=== PATIENT | male | born 1935 | race African-American/Black ===

== ENCOUNTER 2017-04-26 11:08 | Emergency (ER) | payer OTHER ==
--- NOTE | 2017-04-26 11:39 | PDOC ---
History of Present Illness - General History Source: Patient Exam Limitations: No Limitations - History of Present Illness Initial Comments: 04/26/17 13:02 The patient is a 81 year old male with no significant past medical history, who presents to the ED accompanied with son and . Patient denies any complaints but his son states he has been having back pain and dark urine. Denies dysuria, frequency, hematuria, urgency. Patients son states he has not been drinking enough fluids and doesn't eat enough food. He states he has lost significant weight recently and is underweight. Denies chest pain, SOB, fever, chills, nausea, vomiting, diarrhea, constipation. Patient is former smoker (quit 5 years ago). Denies drug usage or drinking alcohol. Patient lives alone at home. Son comes and takes care of him. <Ezequiel Bradley - Last Filed: 04/26/17 18:09> <Taina Monzon - Last Filed: 04/26/17 18:41> - General Stated Complaint: FAILURE TO THRIVE Time Seen by Provider: 04/26/17 11:38 NIH Stroke Scale - Initial Evaluation Level of consciousness: Alert Ask patient the month and their age: Answers one correctly Ask patient to open & close eyes; make fist and let go: Obeys both correctly Best gaze (horizontal eye movement): Normal Visual field testing: No visual field loss Facial paresis (Show teeth/raise eyebrows/close eyes tight): Normal symmetrical movement Motor Function: Left Arm: Normal Motor Function: Right Arm: Normal (extends arm 90 (or 45) degrees for 10 seconds without drift Motor Function: Left Leg: Normal (extends leg 30 degrees for 5 seconds without drift) Motor Function: Right Leg: Normal (extends leg 30 degrees for 5 seconds without drift) Limb Ataxia: No ataxia Sensory(Use pinprick test arms,legs,trunk,face/side to side): Normal Best language (Describe picture, name items, read sentences): No Aphasia Dysarthria (read several words): Normal articulation Extinction and Inattention: No abnormality - Total Score NIH Stroke Scale Score: 1 <Taina Monzon - Last Filed: 04/26/17 18:41> Past History <Ezequiel Bradley - Last Filed: 04/26/17 18:09> <Taina Monzon - Last Filed: 04/26/17 18:41> - Past Medical History Allergies/Adverse Reactions: Allergies Allergy/AdvReac Type Severity Reaction Status Date / Time No Known Allergies Allergy Verified 04/26/17 12:19 Home Medications: Ambulatory Orders NK [No Known Home Medication] 04/26/17 Review of Systems - Review of Systems Able to Perform ROS?: Yes Comments:: 04/26/17 13:03 CONSTITUTIONAL: No fever, no chills, no fatigue EYES: No visual changes ENT: No ear pain, no sore throat CARDIOVASCULAR: No chest pain, no palpitations RESPIRATORY: No cough, no SOB GI: No abdominal pain, no nausea, no vomiting, no constipation, no diarrhea GENITOURINARY: No dysuria, no frequency, no hematuria MUSKULOSKELETAL: No joint pain, no myalgias, no back pain. SKIN: No rash NEURO: + awake but Unresponsive for 2 minutes while in bath tub. No headache. <Ezequiel Bradley - Last Filed: 04/26/17 18:09> *Physical Exam - Vital Signs Last Vital Signs Temp Pulse Resp BP Pulse Ox 97.2 F L 92 H 22 90/56 98 04/26/17 11:44 04/26/17 11:44 04/26/17 11:44 04/26/17 11:44 04/26/17 11:44 - Physical Exam Comments: 04/26/17 13:04 CONSTITUTIONAL: Cachectic. Temporal wasting. In no apparent distress HEAD: Normocephalic; atraumatic EYES: PERRL; EOM intact ENMT: External appears normal; normal oropharynx. Dry mucous membranes. White coating on the tongue. NECK: Supple; non-tender; no cervical lymphadenopathy CARD: Normal S1, S2; no murmurs, rubs, or gallops RESP: Normal chest excursion with respiration; breath sounds clear and equal bilaterally; no wheezes, rhonchi, or rales ABD: Soft, non-distended; non-tender; no palpable organomegaly, no palpable hernias EXT: Normal ROM in all four extremities; non-tender to palpation; distal pulses intact SKIN: Warm, dry, no rash NEURO: Awake and alert. A/O x2. Disoriented to time. Normal finger to nose. No pronator drift. Not aware of the time. No focal neurological deficiencies. Nih stroke scale was 1 <Ezequiel Bradley - Last Filed: 04/26/17 18:09> Heart Score/ECG Review - ECG Intrepretation Comment:: 04/26/17 14:51 Normal Sinus Rhythm, 79 bpm. Right atrial enlargement. Left axis Deviation. Pulmonary disease pattern. Abnormal ECG. <Ezequiel Bradley - Last Filed: 04/26/17 18:09> ED Treatment Course - LABORATORY CBC & Chemistry Diagram: 04/26/17 12:52 04/26/17 12:52 - ADDITIONAL ORDERS Additional order review: Laboratory Results 04/26/17 11:36 POC Glucometer [id number] 04/26/17 11:36 POC Glucometer [id number] <Ezequiel Bradley - Last Filed: 04/26/17 18:09> - LABORATORY CBC & Chemistry Diagram: 04/26/17 12:52 04/26/17 12:52 <Taina Monzon - Last Filed: 04/26/17 18:41> Medical Decision Making - Medical Decision Making 04/26/17 14:33 I, Dr. Taina Monzon, attest that the scribes documentation that appears above has been prepared under my direction and personally reviewed by me. I confirmed that the note above accurately reflects all work, treatment, procedures, and medical decision-making performed by me. 04/26/17 18:[address] results discussed with patient and his son and the fact that it shows encephamalacia, pt also has an elevated creatinine of 1.9, pt given 1 liter of fluid in ED, Pt is insisting upon discharge home, has been saying he wants to go home and was initially refusing all treatment. Pt ultimately consented for labs and ct but still insists that there is nothing wrong with him and he wants to go home. Pt is alert and awake, again oriented to person and place, knows who is the current and former president of the [place]. Pt never gave urine even after 1 liter of fluid, he says he just cannot urinate here but that if he were home says he would have no problem urinating. Pt denies any complaints of dysuria or frequency. Pt refused to be straight cathed says I want to go home, Wet read on cxr no acute infiltrate. Pt is thin and cachectic only weighs 95 pounds, and is 5ft 11 inches. Pt and his son educated on the importance of eating , pt tolerated apple sauce in ED, [place] dc pt home with referral to [facility] for out pt f/u and to podiatry for his feet , pt with severe onychymycosis <Taina Monzon - Last Filed: 04/26/17 18:41> *DC/Admit/Observation/Transfer - Attestations Scribe Attestion: 04/26/17 13:07 Documentation prepared by Ezequiel Bradley, acting as medical reception specialist for Taina Monzon MD/DO. <Ezequiel Bradley - Last Filed: 04/26/17 18:09> - Discharge Dispostion Admit: No <Taina Monzon - Last Filed: 04/26/17 18:41> Diagnosis at time of Disposition: Failure to thrive - Discharge Dispostion Disposition: HOME Condition at time of disposition: Stable - Referrals Referrals: Ayad Stevens MD [Staff Physician] - [facility] [Provider Group] - Patient Instructions Printed Discharge Instructions: DI for Malnutrition - Older Adults Additional Instructions: return to ED for fever, trouble breathing or as needed,pt agrees with this dc plan
[2017-04-26 12:20] VITALS: BMI 13.2
[2017-04-26 13:08] LABS: MCH 29.2 pg (25.7-33.7); MCHC 32.3 g/dl (32.0-35.9); MEAN CELL VOLUME 90.3 fl (80-96); MEAN PLT VOLUME 9.6 fl (7.5-11.1); PLATELET COUNT 196 K/MM3 (134-434); RDW 13.6 % (11.9-15.9); WHITE BLOOD COUNT 9.5 K/mm3 (4.0-10.0)
[2017-04-26 13:11] LABS: PLATELET ESTIMATE ADEQUATE (NORMAL)
[2017-04-26 13:25] LABS: ALBUMIN 4.4 g/dl (3.4-5.0); ANION GAP 11 (8-16); BILIRUBIN,TOTAL 1.6 mg/dL (0.2-1.0); CALCIUM 9.6 mg/dL (8.5-10.1); CO2 28 mmol/L (21-32); CREATININE 1.8 mg/dL (0.7-1.3); GLUCOSE,RANDOM 166 mg/dL (74-106); SGOT/AST 15 U/L (15-37); SGPT/ALT 17 U/L (12-78); TOT PROT 7.6 g/dl (6.4-8.2)
[2017-04-26 13:26] LABS: ALK PHOS 40 U/L (45-117)
[2017-04-26] MEDS ORDERED: SODIUM CHLORIDE 1,000 ML IV SCH (15:45)
[2017-04-26 17:09] LABS: TROPONIN I 0.02 ng/ml (0.00-0.05)
[2017-04-26 18:57] VITALS: BP 126/72; PULSE 88; TEMP 97
--- NOTE | 2017-04-28 09:23 | EKG ---
Test Reason : Blood Pressure : / mmHG Vent. Rate : 079 BPM Atrial Rate : 079 BPM P-R Int : 162 ms QRS Dur : 086 ms QT Int : 384 ms P-R-T Axes : 088 -30 077 degrees QTc Int : 440 ms POOR DATA QUALITY, INTERPRETATION MAY BE ADVERSELY AFFECTED NORMAL SINUS RHYTHM RIGHT ATRIAL ENLARGEMENT LEFT AXIS DEVIATION PULMONARY DISEASE PATTERN ABNORMAL ECG NO PREVIOUS ECGS AVAILABLE Confirmed by CARY MCMAHAN, RIAZ ([id number]) on 04/28/2017 9:23:01 AM Referred By: Confirmed By:RIAZ TOWNSEND MD
== END 2017-04-26 18:53 | disposition home or self-care (01) ==
LOC: JER 11:08
PROC: 3E0337Z Introduction of Electrolytic and Water Balance Substance into Peripheral Vein, Percutaneous Approach (ICD-10-PCS; principal; 2017-04-26)
DX: R62.7 Adult failure to thrive (principal)
CPT/HCPCS: 36415; 70450-TC; 71010-TC; 80053; 82550; 82553; 84484; 85025; 93005; 93010; 96360; 96361; 99284-25

== ENCOUNTER 2019-04-25 12:03 | Inpatient (IN) | payer OTHER ==
[2019-04-25] MEDS ORDERED: SODIUM CHLORIDE 0.9% 1000 ML INFUS.BAG IV ONE ×2 (12:06→15:53)
[2019-04-25] MEDS ORDERED: RAPID SEQUENCE INTUBATION KIT NR ONE (12:22)
[2019-04-25] MEDS ORDERED: ALBUTEROL SO4 2.5/IPRATROPIUM 0.5 INH SOL 3 ML VIAL.NEB. NEB ONE (12:45)
--- NOTE | 2019-04-25 12:52 | PDOC ---
Documentation entered by Sagar Recinos SCRIBE, acting as scribe for Danae Calle MD. Danae Calle MD: This documentation has been prepared by the Grisel zelaya Nirvannie, SCRIBE, under my direction and personally reviewed by me in its entirety. I confirm that the documentation accurately reflects all work, treatment, procedures, and medical decision making performed by me. Attending Attestation - Resident Resident Name: Osbaldo Campa - ED Attending Attestation I have performed the following: I have examined & evaluated the patient, The case was reviewed & discussed with the resident, I agree w/resident's findings & plan - HPI HPI: 04/25/19 13:01 The patient is an 83 year old male, with an unknown significant past medical history, who presents to the emergency department in respiratory failure. As per patients son, he was visiting him at his 7th floor, non-air conditioned walk-up apartment. Son notes the patient was not talking completely coherently, received an upsetting phone call, and then portrayed a gazed look prompting the son to move him from the chair to his bed and call 911. EMS arrived approximately 30 minutes after the phone call. As per EMS, upon their arrival patient was saturating in the 40s%. En route: 5 of Versed 100 of Rocuronium 20 of Etomidate Atropine Highest O2 saturation post-intubation: 41% In the ED, Vitals pre-reintubation, 12:15pm: 109 bpm, 68% 12:20pm 50 of Rocuronium O2 without tube: 55% Intubation at 12:22 Rectal Temp: 98.7F Allergies: NKDA Social History: Former smoker. Code Status: Full Code. - Physicial Exam PE: 04/25/19 12:42 cachectic appearing, pt intubated, unresponsive. pupils equally round and reactive. breathsounds decreased bilaterally, more decreased on left. heart reg tachycardia. no mrg. abd scaphoid, ext cachectic thin, skin warm , no rash. pulses 2+ femoral pulses bilaterally. 04/25/19 12:47 - Critical Care Time Total Critical Care Time: 90 Critical Care Statement: The care of this patient involved high complexity decision making to prevent further life threatening deterioration of the patient 's condition and/or to evaluate & treat vital organ system(s) failure or risk of failure. - Medical Decision Making 04/25/19 12:48 83 yo male h/o FTT, prior smoker, here with sudden witnessed collapse prior to arrival, 30 min prior to EMS arrival. found to be hyppoxic, then bradycardic and hypotensive. given fluids intubated with low oxygen saty 81. family arrive to bedside states pt no h/o copd, however is known h/o tobacco use. per EMS pt house very warm, no ac, lives on 7th floor. differential ICH CVA, dysrhtymia, renal failure and rhabdo or hyperK, dehdyration, anemia, AK, plan ET tubed change as ruptured balloon on EMS tube. pt intubated given rocuronium, was still sedated from versed 5mg given by EMS. IV hydration wtih 2L NS cxr with severely hyperinflated lungs. will obtain CT head. EKG no st elevation or depression, Peaked T waves in septal leads, family informed of pt condition. dw family about goals of care. son ( and , laura ) would like full code. focused ED us aorta, no AAA noted. focused ED TTE performed, RV hypertrophy noted, no rv dilation. overall RV contractility normal. left contractility normal no pericardial effusion. Parasternal view limited due to body habitus, severe copd. bilat leg us r/o dvt negative for proximal dvt popliteal examination limited due to contracted thin states. recommend repeat as needed in 5 - [address] head is negative. ct chest obtained for fluctuating oxygen sats, ct with blebs, no ptx. og ordered. rescusitated wtih 4 L NS. pt with uti noted, given ceftriaxone. cultures sent. heparin started due to concerns for persistant hypoxia possible PE considered , unable to obtain cta due to acute renal failure. increased PEEP on vent from 5 to 10 to try to improved oxygenation. pt little movement in ed. after versed work off was biting tube, moved to painful stimuli. given additional sedation. Heart Score/ECG Review #1 ECG reviewed & interpreted by me at: 13:48 General ECG Interpretation: Sinus Rhythm, Normal Rate, Normal Intervals, No acute ischemic changes Compared to previous ECG there are: Other (left axis, lvh, no st elevation or depression.)
--- NOTE | 2019-04-25 12:52 | PDOC ---
History of Present Illness <Danae Calle - Last Filed: 04/25/19 18:02> - General History Source: EMS, Family Exam Limitations: Clinical Condition, Intubated, Unresponsive - History of Present Illness Initial Comments: 04/25/19 12:51 83yo man former "heavy smoker" with unclear PMH, FTT in 2017, BIBEMS intubated, respiratory distress, AMS for 45min [employer]. Son reports that pt lives in unairconditioned 7fl walkup apartment, is "fussy" at baseline and noncompliant with medical care, no current PCP, no medications, and "doesn't eat or drink much." Son was attempting to bath pt when he suddenly slumped and was "unable to hold himself up" he quit talking at this point and never spoke to the son or EMS upon arrival. As per EMS, upon arrival pt O2 sat in 40s%, bradycardic. Was given atropine, IVF , versed 4, Yung 100, Etom 20 and intubated en route. Highest O2 saturation post- intubation was 81%. In the ED ET tube was exchanged with Yung 50. CXR for positioning revealed hyper- inflated lungs and bullae, c/w COPD. Baxter catheter placed with return of grossly cloudy urine. Patient warm, rectal temp of 98.7F. NCHCT without signs of hemorrhage. PMH: presumed COPD, unclear Hx PSH: unknown Allergies: NKDA Meds: Unclear, believed noncompliant SHx: Former smoker <Osbaldo Campa - Last Filed: 04/25/19 18:06> - General Chief Complaint: Respiratory Arrest Stated Complaint: CARDIAC ARREST Time Seen by Provider: 04/25/19 12:07 Past History <Danae Calle - Last Filed: 04/25/19 18:02> - Past Medical History Anemia: No Asthma: No Cancer: No Cardiac Disorders: No CVA: No COPD: No DVT: No Dementia: No Diabetes: No Dialysis: No GI Disorders: No Disorders: No HTN: No Hypercholesterolemia: No Kidney Stones: No Liver Disease: No Psychiatric Problems: No Seizures: No Thyroid Disease: No Lung CA: No - Surgical History Abdominal Surgery: No Appendectomy: No Cardiac Surgery: No Cholecystectomy: No Gastric Stapling: No GI Surgery: No Lung Surgery: No Neurologic Surgery: No - Suicide/Smoking/Psychosocial Hx Smoking History: Unknown if ever smoked Have you smoked in the past 12 months: Yes If you are a former smoker, when did you quit?: 5 Months ago Hx Alcohol Use: No Drug/Substance Use Hx: No Substance Use Type: None <Osbaldo Campa - Last Filed: 04/25/19 18:06> - Past Medical History Allergies/Adverse Reactions: Allergies Allergy/AdvReac Type Severity Reaction Status Date / Time No Known Allergies Allergy Verified 04/25/19 12:05 Home Medications: Ambulatory Orders NK [No Known Home Medication] 04/26/17 Review of Systems - Review of Systems Able to Perform ROS?: No (Pt intubated, sedated) <Osbaldo Campa - Last Filed: 04/25/19 18:06> *Physical Exam - Vital Signs Last Vital Signs Temp Pulse Resp BP Pulse Ox 98.7 F 110 H 14 104/68 68 L 04/25/19 12:55 04/25/19 15:41 04/25/19 16:55 04/25/19 15:41 04/25/19 15:41 <Danae Calle - Last Filed: 04/25/19 18:02> - Vital Signs Last Vital Signs Temp Pulse Resp BP Pulse Ox 105 H 70/40 L 04/25/19 12:07 04/25/19 12:07 - Physical Exam Comments: 04/25/19 16:13 Vitals reviewed, concerning for prolonged hypoxic O2 sat Gen: emaciated, intubated, laying in bed, eyes partially open - no resistance to opening / closing by hand HEENT: philip, edentulous, moist mucous membranes, trachea midline, pupils equal and sluggishly reactive to light, normal morphologies, atraumatic CV: RRR, no murmurs appreciated Pulm: Difficult to hear breath sounds, seemingly reduced on the left side, found to have ruptured cuff, after tube exchange breath sounds symmetric, remain difficult to hear, no gurgle Abd: Thin, soft, non-distended, no scars or markings Pulses: 2+ femoral, radial bilaterally Neuro: Sedated, non-responsive, not interactive, not following commands, neither alert nor oriented. Skin: no rashes, scars, markings <Osbaldo Campa - Last Filed: 04/25/19 18:06> Procedures - Intubation Intubation Method: orotracheal Blade used: Mac Tube Size (Fr): 7.0 Medications: Rocuronium Tube position @ lip (cm): 24 Tube position confirmed by: Direct visualization Breath Sounds after Intubation: equal Intubation Complications: no complications Post Intubation Xray: Yes <Osbaldo Campa - Last Filed: 04/25/19 18:06> ED Treatment Course - LABORATORY CBC & Chemistry Diagram: 04/25/19 12:35 04/25/19 12:30 - ADDITIONAL ORDERS Additional order review: Laboratory Results 04/25/19 04/25/19 04/25/19 15:42 15:41 15:41 PT with INR 12.60 INR 1.07 Anticoagulation Therapy Puncture Site ABG pH ABG pCO2 at Pt Temp ABG pO2 at Pt Temp ABG HCO3 ABG O2 Sat (Measured) ABG O2 Content ABG Base Excess Singh Test O2 Delivery Device Oxygen Flow Rate Vent Mode Vent Rate Mechanical Rate Pressure Support Vent Sodium Potassium Chloride Carbon Dioxide Anion Gap BUN Creatinine Est GFR (CKD-EPI)AfAm Est GFR (CKD-EPI)NonAf Random Glucose Lactic Acid Calcium Total Bilirubin AST ALT Alkaline Phosphatase Creatine Kinase 121 Troponin I 0.16 H Total Protein Albumin Urine Color Urine Appearance Urine pH Ur Specific Drake Urine Protein Urine Glucose (UA) Urine Ketones Urine Blood Urine Nitrite Urine Bilirubin Urine Urobilinogen Ur Leukocyte Esterase Urine WBC (Auto) Urine RBC (Auto) Urine Casts (Auto) U Epithel Cells (Auto) Urine Bacteria (Auto) Ur Random Creatinine 69.0 Ur Random Sodium 94 Ur Random Potassium 24.0 L Ur Random Chloride 107 L Opiates Screen Methadone Screen Barbiturate Screen Phencyclidine Screen Ur Amphetamines Screen MDMA (Ecstasy) Screen Benzodiazepines Screen Cocaine Screen U Marijuana (THC) Screen 04/25/19 04/25/19 04/25/19 15:20 14:20 14:20 PT with INR INR Anticoagulation Therapy Puncture Site ABG pH ABG pCO2 at Pt Temp ABG pO2 at Pt Temp ABG HCO3 ABG O2 Sat (Measured) ABG O2 Content ABG Base Excess Singh Test O2 Delivery Device Oxygen Flow Rate Vent Mode Vent Rate Mechanical Rate Pressure Support Vent Sodium Potassium Chloride Carbon Dioxide Anion Gap BUN Creatinine Est GFR (CKD-EPI)AfAm Est GFR (CKD-EPI)NonAf Random Glucose Lactic Acid 5.6 H* Calcium Total Bilirubin AST ALT Alkaline Phosphatase Creatine Kinase Troponin I Total Protein Albumin Urine Color Yellow Urine Appearance Turbid Urine pH 8.5 H Ur Specific Drake 1.011 Urine Protein 1+ H Urine Glucose (UA) Negative Urine Ketones Trace H Urine Blood 2+ H Urine Nitrite Negative Urine Bilirubin Negative Urine Urobilinogen 0.2 Ur Leukocyte Esterase 3+ H Urine WBC (Auto) 1290 Urine RBC (Auto) 15 Urine Casts (Auto) 52 U Epithel Cells (Auto) 6.4 Urine Bacteria (Auto) 1964.1 Ur Random Creatinine Ur Random Sodium Ur Random Potassium Ur Random Chloride Opiates Screen Negative Methadone Screen Negative Barbiturate Screen Negative Phencyclidine Screen Negative Ur Amphetamines Screen Negative MDMA (Ecstasy) Screen Negative Benzodiazepines Screen Positive A* Cocaine Screen Negative U Marijuana (THC) Screen Negative 04/25/19 04/25/19 04/25/19 13:21 12:30 12:30 PT with INR INR Anticoagulation Therapy No Result Required. Puncture Site Left radial ABG pH 7.45 ABG pCO2 at Pt Temp 26.2 L ABG pO2 at Pt Temp 63.7 L ABG HCO3 17.9 L ABG O2 Sat (Measured) 92.8 L ABG O2 Content 15.8 ABG Base Excess -4.4 L Singh Test Positive O2 Delivery Device No Result Required. Oxygen Flow Rate Yes Vent Mode No Result Required. Vent Rate No Result Required. Mechanical Rate No Result Required. Pressure Support Vent No Result Required. Sodium 143 Potassium 5.2 H Chloride 105 Carbon Dioxide 23 Anion Gap 14 BUN 77.0 H Creatinine 2.3 H Est GFR (CKD-EPI)AfAm 28.93 Est GFR (CKD-EPI)NonAf 24.96 Random Glucose 87 Lactic Acid 3.9 H* Calcium 9.0 Total Bilirubin 1.0 AST 13 L ALT 11 L Alkaline Phosphatase 45 Creatine Kinase 52 Troponin I 0.03 Total Protein 6.6 Albumin 3.7 Urine Color Urine Appearance Urine pH Ur Specific Drake Urine Protein Urine Glucose (UA) Urine Ketones Urine Blood Urine Nitrite Urine Bilirubin Urine Urobilinogen Ur Leukocyte Esterase Urine WBC (Auto) Urine RBC (Auto) Urine Casts (Auto) U Epithel Cells (Auto) Urine Bacteria (Auto) Ur Random Creatinine Ur Random Sodium Ur Random Potassium Ur Random Chloride Opiates Screen Methadone Screen Barbiturate Screen Phencyclidine Screen Ur Amphetamines Screen MDMA (Ecstasy) Screen Benzodiazepines Screen Cocaine Screen U Marijuana (THC) Screen 04/25/19 12:35 RBC 4.66 MCV 93.0 MCHC 31.2 L RDW 14.5 MPV 10.4 Neutrophils % 80.5 Lymphocytes % 11.5 D Monocytes % 7.4 D Eosinophils % 0.2 Basophils % 0.4 - RADIOLOGY Radiology Studies Ordered: Category Date Time Status HEAD CT WITHOUT CONTRAST [CT] Stat CT Scan 04/25/19 13:10 Completed CHEST X-RAY PORTABLE* [RAD] Stat Radiology 04/25/19 12:06 Completed CHEST X-RAY PORTABLE* [RAD] Stat Radiology 04/25/19 13:49 Completed - Medications Given in the ED: ED Medications Discontinued Medications Generic Name Dose Route Start Last Admin Trade Name Freq PRN Reason Stop Dose Admin Albuterol/Ipratropium 1 amp 04/25/19 12:45 04/25/19 12:56 Duoneb - NEB 04/25/19 12:46 1 amp ONCE ONE Administration Calcium Gluconate 1,000 mg 04/25/19 14:54 04/25/19 15:13 Calcium Gluconate 10% - IVPUSH 04/25/19 14:55 1,000 mg ONCE ONE Administration Sodium Chloride 1,000 mls @ 100 mls/hr 04/25/19 15:00 04/25/19 15:00 Normal Saline - IV 100 mls/hr ASDIR MINOR Administration Sodium Chloride 1,000 mls @ 1,000 mls/hr 04/25/19 15:45 04/25/19 15:00 Normal Saline - IV 04/25/19 16:44 1,000 mls/hr ASDIR STA Administration Sodium Chloride 1,000 mls @ 1,000 mls/hr 04/25/19 15:51 04/25/19 15:00 Normal Saline - IV 04/25/19 16:50 1,000 mls/hr ASDIR ONE Administration Methylprednisolone Sodium Succinate 125 mg 04/25/19 14:20 04/25/19 15:13 Solu-Medrol - IVPB 04/25/19 14:21 125 mg ONCE ONE Administration Midazolam HCl 2 mg 04/25/19 16:56 04/25/19 16:56 Versed - IVPUSH 04/25/19 16:57 2 mg ONCE ONE Administration Sodium Chloride 1,000 ml 04/25/19 12:06 04/25/19 12:06 Normal Saline - IV 04/25/19 12:07 1,000 ml ONCE ONE Administration Sodium Chloride 1,000 ml 04/25/19 15:46 04/25/19 15:00 Normal Saline - IV 04/25/19 15:47 1,000 ml ONCE ONE Administration Sodium Chloride 1,000 ml 04/25/19 15:53 04/25/19 14:00 Normal Saline - IV 04/25/19 15:54 1,000 ml NOW ONE Administration Sodium Chloride 1,000 ml 04/25/19 17:24 04/25/19 17:00 Normal Saline - IV 04/25/19 17:25 1,000 ml NOW ONE Administration <Danae Calle - Last Filed: 04/25/19 18:02> - LABORATORY CBC & Chemistry Diagram: 04/25/19 12:35 04/25/19 12:30 - Medications Given in the ED: ED Medications Discontinued Medications Generic Name Dose Route Start Last Admin Trade Name Freq PRN Reason Stop Dose Admin Sodium Chloride 1,000 ml 04/25/19 12:06 04/25/19 12:06 Normal Saline - IV 04/25/19 12:07 1,000 ml ONCE ONE Administration <Osbaldo Campa - Last Filed: 04/25/19 18:06> Medical Decision Making - Critical Care Time Total Critical Care Time (minutes): 90 Critical Care Statement: The care of this patient involved high complexity decision making to prevent further life threatening deterioration of the patient 's condition and/or to evaluate & treat vital organ system(s) failure or risk of failure. - Medical Decision Making 04/25/19 12:55 83 yo male h/o FTT, prior smoker, here with sudden witnessed collapse prior to arrival, found to be hypoxic, then bradycardic and hypotensive. given fluids intubated with low oxygen sat maxing at 81. DDX: ICH CVA, dysrhythmia, renal failure and rhabdo or hyperK, dehdyration, anemia, MO. -CBC, CMP, Lactate, ABG -NCHCT -CXR -EKG -Cardiac Profile -Coags ET tube changed as ruptured balloon on EMS tube. Pt intubated given rocuronium, was still sedated from versed 5mg given by EMS. IV hydration with 2L NS CXR with severely hyperinflation lungs EKG no ST elevation or depression, Peaked T waves in septal leads, Goals of care: son (and , currently ) would like full code, no formal documentation available POCUS -Aorta with no AAA noted 04/25/19 15:00 -ICU consulted, admitting team notified -Pt desat to 70s/80s, tube in place on repeat CXR - bullae noted -Lungs with abnormal motion on POCUS, concerning for PTX vs bullae -Urgent chest CT demonstrating blebs / bullae -Saturation intermittently improving, patient remains intubated, on vent, suction as needed -Solu-medrol 125 -Albuterol/Ipratroprium Nebs 04/25/19 15:30 -Hypotensive to SBP 70s-80s, given Additional 2 boluses of IVF with good response 04/25/19 16:40 -Pt moving / chewing and opening his mouth, given versed -Additional episode of hypotension to 70s-80s, additional bolus given -Pt moved to unit <Osbaldo Campa - Last Filed: 04/25/19 18:06> *DC/Admit/Observation/Transfer - Discharge Dispostion Decision to Admit order: Yes <Danae Calle - Last Filed: 04/25/19 18:02> - Discharge Dispostion Decision to Admit order: Yes <Osbaldo Campa - Last Filed: 04/25/19 18:06> Diagnosis at time of Disposition: Altered mental state, Urinary tract infection Failure to thrive Qualifiers: Failure to thrive age range: in adult Qualified Code(s): R62.7 - Adult failure to thrive Renal failure Qualifiers: Renal failure chronicity: acute Respiratory failure Qualifiers: Chronicity: acute on chronic Respiratory failure complication: hypoxia Qualified Code(s): J96.21 - Acute and chronic respiratory failure with hypoxia - Discharge Dispostion Condition at time of disposition: Guarded
[2019-04-25 13:11] LABS: BASO % 0.4 % (0-2.0); EOS % 0.2 % (0-4.5); HEMATOCRIT 43.4 % (35.4-49); HEMOGLOBIN 13.5 GM/dL (11.7-16.9); LYMPH % 11.5 % (8-40); MCHC 31.2 g/dl (32.0-35.9); MEAN PLT VOLUME 10.4 fl (7.5-11.1); MONO % 7.4 % (3.8-10.2); NEUT % 80.5 % (42.8-82.8); PLATELET COUNT 198 K/MM3 (134-434); RBC 4.66 M/mm3 (4.00-5.60); RDW 14.5 % (11.9-15.9); WHITE BLOOD COUNT 3.1 K/mm3 (4.0-10.0)
[2019-04-25 13:42] LABS: ALBUMIN 3.7 g/dl (3.4-5.0); CREATININE 2.3 mg/dL (0.55-1.3); POTASSIUM 5.2 mmol/L (3.5-5.1); TOT PROT 6.6 g/dl (6.4-8.2)
[2019-04-25 13:50] LABS: ARTERIAL BLD GAS O2 SATURATION 92.8 % (95-98); ARTERIAL BLOOD GAS BASE EXCESS -4.4 meq/l (-2-2); ARTERIAL BLOOD GAS PCO2 26.2 mmHg (35-45); ARTERIAL BLOOD GAS PO2 63.7 mmHg (80-105); ARTERIAL BLOOD GAS pH 7.45 (7.35-7.45)
[2019-04-25 14:06] LABS: ALLENS TEST POSITIVE
[2019-04-25] MEDS ORDERED: methylPREDNISolone NA SUCC 125 MG/2 ML VIAL IVPB ONE (14:20)
[2019-04-25 14:34] LABS: EPI CELLS 6.4 /HPF (0-5/HPF); HYALINE CASTS 52 /lpf (0-8); PH,URINE 8.5 (5.0-8.0); URINE APPEARANCE TURBID; URINE BACTERIA 1964.1 /hpf (NEGATIVE); URINE BILIRUBIN NEGATIVE (NEGATIVE); URINE COLOR YELLOW; URINE GLUCOSE (UA) NEGATIVE (NEGATIVE); URINE KETONE TRACE (NEGATIVE); URINE LEUK ESTERASE 3+ (NEGATIVE); URINE NITRITE NEGATIVE (NEGATIVE); URINE PROTEIN 1+ (NEGATIVE); URINE RBC 15 /hpf (0-4); URINE UROBILINOGEN 0.2 mg/dL (0.2-1.0); URINE WBC 1290 /hpf (0-5)
--- NOTE | 2019-04-25 14:46 | CONSULT ---
Consultation: CONSULT SERVICE: ICU Resident HISTORY OF PRESENT ILLNESS: 83yo M with only reported history of COPD with long-standing tobacco use who presents today after collapse and unresponsiveness. Pt is unable to provide history so HPI is provided by chart, ED, and pt's son's whom I called. Pt was in his normal state of health (underweight, walking yet weak, and talking) when he was visiting his son. Pt's son was going to bring the patient to the hospital due to his failure to thrive and when giving him a bath sitting down pt suddenly went unresponsive and gave a blank gaze. It was also noted that at some point pt had a brief moment of unintelligible speech before he became unresponsive. Pt's son called EMS who arrived 30min after the call who found pt to be bradycardic, hypotensive and hypoxic. Pt was intubated in the field, given Atropine x1 dose for bradycardia and was given Versed 5mg, Rocuronium 100 , and Etomidate 20 for RSI. Pt arrived to the ED where he had his ETT exchanged , however pt's BP and HR were resolved to normotensive and 100 bpm respectively. Pt currently is unresponsive with no gag reflex, sluggish pupils on AC mode of vent with 100% fiO2 and PEEP 8. Pt's pulse oximetry reading 66%, however on pt's ABG pO2 is 63.7. Currently pt remains full code per pt's son and son's who GOC were discussed with. Pt on previous hospital visit was known to be poorly compliant with medical care and would often refuse treatment. Pt was also notedto acosta REVIEW OF SYSTEMS: Unable to obtain PHYSICAL EXAMINATION Vital Signs 04/25/19 04/25/19 04/25/19 12:05 12:07 12:56 Pulse Rate 110 H 105 H Respiratory 14 14 Rate Blood Pressure 70/40 L O2 Sat by Pulse 100 Oximetry (%) 04/25/19 04/25/19 13:43 14:18 Pulse Rate Respiratory 14 14 Rate Blood Pressure O2 Sat by Pulse 84 L Oximetry (%) GENERAL: Nonresponsive, eyes open, intubated HEENT: NC/AT, bitemporal wasting noted, no gag reflex noted, sluggish pupils but equal and reactive to light, sclera anicteric, dry MM NECK: No JVD, no masses noted LUNGS: Distant breath sounds bilaterally. No wheezes, and no crackles. No accessory muscle use. Intubated AC 350TV/RR 14/FiO2 100%/PEEP 8 HEART: RRR, normal S1 and S2 without murmur ABDOMEN: Soft, cachectic, nondistended, hypoactive BS, no grimmacing with palpation. EXTREMITIES: Cachectic/thin appearing, 2+ pulses distally b/l, warm, well- perfused. Cap refill <2 seconds. No peripheral edema. NEUROLOGICAL: Limited. See HEENT exam. Babinksi downgoing b/l. SKIN: Warm, dry, flaking skin on feet b/l without overt ulcerations, malodorous feet with onchomycosis. No rashes Laboratory Results 04/25/19 04/25/19 04/25/19 12:30 12:30 12:35 WBC 3.1 L RBC 4.66 Hgb 13.5 Hct 43.4 MCV 93.0 MCH 29.0 MCHC 31.2 L RDW 14.5 Plt Count 198 MPV 10.4 Absolute Neuts (auto) 2.5 Neutrophils % 80.5 Lymphocytes % 11.5 D Monocytes % 7.4 D Eosinophils % 0.2 Basophils % 0.4 Nucleated RBC % 0 Anticoagulation Therapy Puncture Site ABG pH ABG pCO2 at Pt Temp ABG pO2 at Pt Temp ABG HCO3 ABG O2 Sat (Measured) ABG O2 Content ABG Base Excess Singh Test O2 Delivery Device Oxygen Flow Rate Vent Mode Vent Rate Mechanical Rate Pressure Support Vent Sodium 143 Potassium 5.2 H Chloride 105 Carbon Dioxide 23 Anion Gap 14 BUN 77.0 H Creatinine 2.3 H Est GFR (CKD-EPI)AfAm 28.93 Est GFR (CKD-EPI)NonAf 24.96 Random Glucose 87 Lactic Acid 3.9 H* Calcium 9.0 Total Bilirubin 1.0 AST 13 L ALT 11 L Alkaline Phosphatase 45 Creatine Kinase 52 Troponin I 0.03 Total Protein 6.6 Albumin 3.7 Urine Color Urine Appearance Urine pH Ur Specific [place] Urine Protein Urine Glucose (UA) Urine Ketones Urine Blood Urine Nitrite Urine Bilirubin Urine Urobilinogen Ur Leukocyte Esterase Urine WBC (Auto) Urine RBC (Auto) Urine Casts (Auto) U Epithel Cells (Auto) Urine Bacteria (Auto) 04/25/19 04/25/19 13:21 14:20 WBC RBC Hgb Hct MCV MCH MCHC RDW Plt Count MPV Absolute Neuts (auto) Neutrophils % Lymphocytes % Monocytes % Eosinophils % Basophils % Nucleated RBC % Anticoagulation Therapy No Result Required. Puncture Site Left radial ABG pH 7.45 ABG pCO2 at Pt Temp 26.2 L ABG pO2 at Pt Temp 63.7 L ABG HCO3 17.9 L ABG O2 Sat (Measured) 92.8 L ABG O2 Content 15.8 ABG Base Excess -4.4 L Singh Test Positive O2 Delivery Device No Result Required. Oxygen Flow Rate Yes Vent Mode No Result Required. Vent Rate No Result Required. Mechanical Rate No Result Required. Pressure Support Vent No Result Required. Sodium Potassium Chloride Carbon Dioxide Anion Gap BUN Creatinine Est GFR (CKD-EPI)AfAm Est GFR (CKD-EPI)NonAf Random Glucose Lactic Acid Calcium Total Bilirubin AST ALT Alkaline Phosphatase Creatine Kinase Troponin I Total Protein Albumin Urine Color Yellow Urine Appearance Turbid Urine pH 8.5 H Ur Specific [place] 1.011 Urine Protein 1+ H Urine Glucose (UA) Negative Urine Ketones Trace H Urine Blood 2+ H Urine Nitrite Negative Urine Bilirubin Negative Urine Urobilinogen 0.2 Ur Leukocyte Esterase 3+ H Urine WBC (Auto) 1290 Urine RBC (Auto) 15 Urine Casts (Auto) 52 U Epithel Cells (Auto) 6.4 Urine Bacteria (Auto) 1964.1 ASSESSMENT/PLAN: Acute respiratory failure Unresponsiveness Bradycardia with hypotension (resolved) Complicated Urinary tract infection Acute renal failure with uremia Lactic Acidosis Hyperkalemia Failure to thrive with Severe malnutrition --Unclear etiology for collapse/unresponsiveness DDx: Cardiac arrhythmia, syncope 2/2 to failure to thrive and sepsis, r/o PE given persistent hypoxia and possibility of malignancy causing cachexia, ? seizure with postictal state --Cardiac monitoring --D5-NS@75cc/hr --Empiric Rocephin 2gm qdaily for UTI --No overt contraindications to AC; will empirically treat possible PE with heparin gtt until renal function stabilizes --Echocardiogram ordered to r/o LV motion abnormalities --Monitor for seizure-like activity and if noticed will load with Keppra --Continue AC mode of Vent however will use low TV and maintain minute ventilation with RR given multiple bullae seen on CT chest --Given hypoxemia will trial paralytic to eliminate muscle oxygen consumption /demand --Repeat ABG at 1800h --Head CT reviewed --CXR and CT chest noncontrast reviewed --Utox positive for benzo's given in field by EMS --Urine electrolyte and urine creatinine ordered --Trend LA --Likely multifactorial: Type A given tissue hypoxia vs. Type B with nutritional deficits --Hydration as above and optimize oxygenation --Thiamine alongside of dextrose in fluids given possibility of Wernicke's encephalopathy with unintelligible speech FEN: Fluids: D5-NS@75cc/hr Electrolyte abnormalities: Hyperkalemia, treat with fluids and CaGluc for cardiac stabilization given acute T-waves; repeat BMP 1800h Nutrition: NPO while intubated PPX: DVT - already on Heparin gtt GI - No indication currently Dispo: ICU monitoring GOC: Full code Case discussed Bradley Stafford, DO - IM PGY-3 Dispo: We will continue to follow the patient. Thank you for this consultative opportunity. ATTENDING PHYSICIAN STATEMENT I saw and evaluated the patient. I reviewed the resident's note and discussed the case with the resident. I agree with the resident's findings and plan as documented. SUBJECTIVE: OBJECTIVE: ASSESSMENT AND PLAN:
[2019-04-25] MEDS ORDERED: HEPARIN NA (PORCINE) 5,000 UNITS/ML 1ML VIAL IVPUSH PRN ×2 (14:47)
[2019-04-25 14:52] LABS: COCAINE, UR NEGATIVE ng/ml (CUTOFF=300); METHADONE, UR NEGATIVE ng/ml (CUTOFF=300); OPIATES, URI NEGATIVE ng/ml (CUTOFF=300); PHENCYCLIDINE,URINE NEGATIVE ng/ml (CUTOFF=25); URINE AMPHETAMINES NEGATIVE ng/ml (CUTOFF=500); URINE BARBITURATES NEGATIVE ng/ml (CUTOFF=200)
[2019-04-25] MEDS ORDERED: CALCIUM GLUCONATE 10% - 1,000 MG/10 ML VIAL IVPUSH ONE (14:54)
[2019-04-25 14:58] LABS: URINE BENZODIAZEPINES POSITIVE ng/ml (CUTOFF=200)
[2019-04-25] MEDS ORDERED: SODIUM CHLORIDE 1,000 ML IV SCH (15:00)
[2019-04-25] MEDS ORDERED: methylPREDNISolone NA SUCC 125 MG/2 ML VIAL ONE ×2 (15:06→15:13)
[2019-04-25] MEDS ORDERED: CEFTRIAXONE 2 GM/100 ML BAG IVPB ONE (15:06)
[2019-04-25] MEDS ORDERED: DEXTROSE 5%-NORMAL SALINE 1,000 ML IV SCH ×2 (15:30→17:28)
[2019-04-25] MEDS: CEFTRIAXONE 2 GM in DEXTROSE 5%-WATER 100 ML IVPB SCH (15:45)
[2019-04-25] MEDS ORDERED: SODIUM CHLORIDE 1,000 ML IV STA (15:45)
[2019-04-25] MEDS ORDERED: SODIUM CHLORIDE 0.9% 500 ML INFUS.BAG IV ONE ×2 (15:46→17:24)
[2019-04-25] MEDS ORDERED: SODIUM CHLORIDE 1,000 ML IV ONE (15:51)
--- NOTE | 2019-04-25 15:59 | HP ---
CHIEF COMPLAINT: PCP: HISTORY OF PRESENT ILLNESS: 83year old Male with only reported history from son , of COPD with long-standing tobacco use who presents today after collapse and unresponsiveness. Pt is unable to provide history so HPI is provided by the chart, ED report from Pt's son, and the son's . Pt was in his normal state of health (underweight, walking yet weak, and talking) when he was visiting his son. Son reports that pt lives in unairconditioned 7floor [facility] apartment, is "fussy" at baseline and noncompliant with medical care, no current PCP, no medications, and "doesn't eat or drink much." Son was attempting to bath pt when he suddenly slumped and was "unable to hold himself up" he quit talking at this point and never spoke to the son or EMS upon arrival. Pt's son called EMS who arrived 30min after the call who found pt to be bradycardic, hypotensive and hypoxic. Pt was intubated in the field, given Atropine x1 dose for bradycardia and was given Versed 5mg, Rocuronium 100, and Etomidate 20 for RSI. Pt arrived to the ED where he had his ETT exchanged however pt's BP and HR were back to normotensive and 100 bpm respectively. Pt currently is unresponsive with no gag reflex, sluggish pupils on AC mode of vent with 100% fiO2 and PEEP 8. Pt's pulse oximetry reading 66. Pt's ABG pO2 is 63.7. As per EMS, upon arrival pt O2 sat in 40s%, bradycardic. Was given atropine, IVF , versed 4, Yung 100, Etom 20 and intubated en route. Highest O2 saturation post- intubation was 81%. In the ED ET tube was exchanged with Yung 50. CXR for positioning revealed hyper- inflated lungs and bullae, c/w COPD. Baxter catheter placed with return of grossly cloudy urine. Patient warm, rectal temp of 98.7F. Currently pt remains full manager relationship per pt's son and son's which were discussed at bedside. ER course was notable for: -Reintubation, -O2 without tube: 55% Recent Travel: Unknown PAST MEDICAL HISTORY: Unable to obtain PAST SURGICAL HISTORY: Unable to obtain Social History: Smoking: Former heavy smoker Alcohol: Drugs: Family History: Allergies No Known Allergies Allergy (Verified 04/25/19 12:05) HOME MEDICATIONS: Home Medications Medication Instructions Recorded NK [No Known Home Medication] 04/26/17 REVIEW OF SYSTEMS Patient intubated and unresponsive PHYSICAL EXAMINATION Vital Signs - 24 hr 04/25/19 04/25/19 04/25/19 12:05 12:07 12:55 Temperature 98.7 F Pulse Rate 110 H 105 H Pulse Rate [ 113 H Apical] Respiratory 14 14 Rate Blood Pressure 70/40 L Blood Pressure 162/111 H [Right Arm] O2 Sat by Pulse 100 97 Oximetry (%) 04/25/19 04/25/19 04/25/19 12:56 13:40 13:43 Temperature Pulse Rate Pulse Rate [ 105 H Apical] Respiratory 14 14 14 Rate Blood Pressure Blood Pressure 140/98 [Right Arm] O2 Sat by Pulse 75 L Oximetry (%) 04/25/19 04/25/19 04/25/19 14:18 14:35 14:40 Temperature Pulse Rate Pulse Rate [ 98 H 100 H Apical] Respiratory 14 14 14 Rate Blood Pressure Blood Pressure 130/78 87/40 L [Right Arm] O2 Sat by Pulse 84 L 82 L 75 L Oximetry (%) 04/25/19 04/25/19 15:03 15:41 Temperature Pulse Rate Pulse Rate [ 110 H Apical] Respiratory 18 16 Rate Blood Pressure Blood Pressure 104/68 [Right Arm] O2 Sat by Pulse 68 L Oximetry (%) GENERAL: Nonresponsive, eyes open, intubated HEENT: NC/AT, bitemporal wasting noted, no gag reflex noted, sluggish pupils but equal and reactive to light, sclera anicteric, dry MM NECK: No JVD, no masses noted LUNGS: Distant breath sounds bilaterally. No wheezes, and no crackles. No accessory muscle use. Intubated AC 350TV/RR 14/FiO2 100%/PEEP 8 HEART: RRR, normal S1 and S2 without murmur ABDOMEN: Soft, cachectic, nondistended, hypoactive BS, no grimmacing with palpation. EXTREMITIES: Cachectic/thin appearing, 2+ pulses distally b/l, warm, well- perfused. Cap refill <2 seconds. No peripheral edema. NEUROLOGICAL: Limited. Inubated and Unresponsive SKIN: Warm, dry, flaking skin on feet b/l without overt ulcerations, malodorous feet with onchomycosis. No rashes Laboratory Results - last 24 hr 04/25/19 04/25/19 04/25/19 12:30 12:30 12:35 WBC 3.1 L RBC 4.66 Hgb 13.5 Hct 43.4 MCV 93.0 MCH 29.0 MCHC 31.2 L RDW 14.5 Plt Count 198 MPV 10.4 Absolute Neuts (auto) 2.5 Neutrophils % 80.5 Lymphocytes % 11.5 D Monocytes % 7.4 D Eosinophils % 0.2 Basophils % 0.4 Nucleated RBC % 0 Anticoagulation Therapy Puncture Site ABG pH ABG pCO2 at Pt Temp ABG pO2 at Pt Temp ABG HCO3 ABG O2 Sat (Measured) ABG O2 Content ABG Base Excess Singh Test O2 Delivery Device Oxygen Flow Rate Vent Mode Vent Rate Mechanical Rate Pressure Support Vent Sodium 143 Potassium 5.2 H Chloride 105 Carbon Dioxide 23 Anion Gap 14 BUN 77.0 H Creatinine 2.3 H Est GFR (CKD-EPI)AfAm 28.93 Est GFR (CKD-EPI)NonAf 24.96 Random Glucose 87 Lactic Acid 3.9 H* Calcium 9.0 Total Bilirubin 1.0 AST 13 L ALT 11 L Alkaline Phosphatase 45 Creatine Kinase 52 Troponin I 0.03 Total Protein 6.6 Albumin 3.7 Urine Color Urine Appearance Urine pH Ur Specific Nesmith Urine Protein Urine Glucose (UA) Urine Ketones Urine Blood Urine Nitrite Urine Bilirubin Urine Urobilinogen Ur Leukocyte Esterase Urine WBC (Auto) Urine RBC (Auto) Urine Casts (Auto) U Epithel Cells (Auto) Urine Bacteria (Auto) Ur Random Creatinine Ur Random Sodium Ur Random Potassium Ur Random Chloride Opiates Screen Methadone Screen Barbiturate Screen Phencyclidine Screen Ur Amphetamines Screen MDMA (Ecstasy) Screen Benzodiazepines Screen Cocaine Screen U Marijuana (THC) Screen 04/25/19 04/25/19 04/25/19 13:21 14:20 14:20 WBC RBC Hgb Hct MCV MCH MCHC RDW Plt Count MPV Absolute Neuts (auto) Neutrophils % Lymphocytes % Monocytes % Eosinophils % Basophils % Nucleated RBC % Anticoagulation Therapy No Result Required. Puncture Site Left radial ABG pH 7.45 ABG pCO2 at Pt Temp 26.2 L ABG pO2 at Pt Temp 63.7 L ABG HCO3 17.9 L ABG O2 Sat (Measured) 92.8 L ABG O2 Content 15.8 ABG Base Excess -4.4 L Singh Test Positive O2 Delivery Device No Result Required. Oxygen Flow Rate Yes Vent Mode No Result Required. Vent Rate No Result Required. Mechanical Rate No Result Required. Pressure Support Vent No Result Required. Sodium Potassium Chloride Carbon Dioxide Anion Gap BUN Creatinine Est GFR (CKD-EPI)AfAm Est GFR (CKD-EPI)NonAf Random Glucose Lactic Acid Calcium Total Bilirubin AST ALT Alkaline Phosphatase Creatine Kinase Troponin I Total Protein Albumin Urine Color Yellow Urine Appearance Turbid Urine pH 8.5 H Ur Specific Nesmith 1.011 Urine Protein 1+ H Urine Glucose (UA) Negative Urine Ketones Trace H Urine Blood 2+ H Urine Nitrite Negative Urine Bilirubin Negative Urine Urobilinogen 0.2 Ur Leukocyte Esterase 3+ H Urine WBC (Auto) 1290 Urine RBC (Auto) 15 Urine Casts (Auto) 52 U Epithel Cells (Auto) 6.4 Urine Bacteria (Auto) 1964.1 Ur Random Creatinine Ur Random Sodium Ur Random Potassium Ur Random Chloride Opiates Screen Negative Methadone Screen Negative Barbiturate Screen Negative Phencyclidine Screen Negative Ur Amphetamines Screen Negative MDMA (Ecstasy) Screen Negative Benzodiazepines Screen Positive A* Cocaine Screen Negative U Marijuana (THC) Screen Negative 04/25/19 15:42 WBC RBC Hgb Hct MCV MCH MCHC RDW Plt Count MPV Absolute Neuts (auto) Neutrophils % Lymphocytes % Monocytes % Eosinophils % Basophils % Nucleated RBC % Anticoagulation Therapy Puncture Site ABG pH ABG pCO2 at Pt Temp ABG pO2 at Pt Temp ABG HCO3 ABG O2 Sat (Measured) ABG O2 Content ABG Base Excess Singh Test O2 Delivery Device Oxygen Flow Rate Vent Mode Vent Rate Mechanical Rate Pressure Support Vent Sodium Potassium Chloride Carbon Dioxide Anion Gap BUN Creatinine Est GFR (CKD-EPI)AfAm Est GFR (CKD-EPI)NonAf Random Glucose Lactic Acid Calcium Total Bilirubin AST ALT Alkaline Phosphatase Creatine Kinase Troponin I Total Protein Albumin Urine Color Urine Appearance Urine pH Ur Specific Nesmith Urine Protein Urine Glucose (UA) Urine Ketones Urine Blood Urine Nitrite Urine Bilirubin Urine Urobilinogen Ur Leukocyte Esterase Urine WBC (Auto) Urine RBC (Auto) Urine Casts (Auto) U Epithel Cells (Auto) Urine Bacteria (Auto) Ur Random Creatinine 69.0 Ur Random Sodium 94 Ur Random Potassium 24.0 L Ur Random Chloride 107 L Opiates Screen Methadone Screen Barbiturate Screen Phencyclidine Screen Ur Amphetamines Screen MDMA (Ecstasy) Screen Benzodiazepines Screen Cocaine Screen U Marijuana (THC) Screen ASSESSMENT/PLAN: 83 year old male with PMHx of COPD, admitted to ICU for Acute Respiratory Failure, Unresponsive, Complicated Urinary tract infection, Acute Renal Failure with Uremia, Lactic Acidosis, Hyperkalemia, Failure to thrive with Severe malnutritio Acute Respiratory Failure -Continue AC mode of Vent however will use low TV and maintain minute ventilation with RR given multiple bullae seen on CT chest --Given hypoxemia will trial paralytic to eliminate muscle oxygen consumption /demand --Repeat ABG at 1800h -Head CT reviewed -CXR and CT chest noncontrast reviewed Unclear Etiology for Collapse/Unresponsiveness Patient's treatment is being managed by ICU DDx: Cardiac arrhythmia, syncope 2/2 to failure to thrive and sepsis, r/o PE given persistent hypoxia and possibility of malignancy causing cachexia, ? seizure with postictal state --Cardiac monitoring --D5-NS@75cc/hr --empirically treat possible PE with heparin gtt until renal function stabilizes --Echocardiogram ordered to r/o LV motion abnormalities --Monitor for seizure-like activity and if noticed will load with Keppra Complicated UTI -Empiric Rocephin 2gm qdaily -Urine tox positive for benzo's given in field by EMS -Urine electrolyte and urine creatinine ordered Trend LA -Likely multifactorial: Type A given tissue hypoxia vs. Type B with nutritional deficits -Hydration as above and optimize oxygenation -Thiamine alongside of dextrose in fluids given possibility of Wernicke's encephalopathy with unintelligible speech FEN: -Fluids: D5-NS@75cc/hr -Electrolyte abnormalities: Hyperkalemia, treat with fluids and CaGluc for cardiac stabilization given acute T-waves; repeat BMP 1800h -Nutrition: NPO while intubated DVT Prophylaxis -On Heparin gtt Dispo -ICU monitoring and will continue to follow the patient. -GOC: Full code Visit type - Emergency Visit Emergency Visit: Yes ED Registration Date: 04/25/19 Care time: The patient presented to the Emergency Department on the above date and was hospitalized for further evaluation of their emergent condition. - New Patient This patient is new to me today: Yes Date on this admission: 04/26/19 - Critical Care Critical Care patient: Yes Total Critical Care Time (in minutes): 60 Critical Care Statement: The care of this patient involved high complexity decision making to prevent further life threatening deterioration of the patient 's condition and/or to evaluate & treat vital organ system(s) failure or risk of failure.
[2019-04-25 16:13] LABS: INR 1.07 (0.83-1.09); PROTHROMBIN TIME (PATIENT) 12.6 SEC (9.7-13.0)
[2019-04-25] MEDS ORDERED: MIDAZOLAM HCL 2 MG/2 ML SINGLE DOSE VIAL ONE (16:37)
[2019-04-25] MEDS ORDERED: MIDAZOLAM HCL 2 MG/2 ML SINGLE DOSE VIAL IVPUSH ONE ×2 (16:56→22:43)
[2019-04-25] MEDS: ALBUTEROL SO4 2.5/IPRATROPIUM 0.5 INH SOL 3 ML VIAL.NEB. NEB SCH ×2 (17:15→21:38)
--- NOTE | 2019-04-25 17:36 | EKG ---
Test Reason : Blood Pressure : / mmHG Vent. Rate : 108 BPM Atrial Rate : 108 BPM P-R Int : 166 ms QRS Dur : 086 ms QT Int : 378 ms P-R-T Axes : 088 -70 083 degrees QTc Int : 506 ms SINUS TACHYCARDIA LEFT AXIS DEVIATION PULMONARY DISEASE PATTERN ABNORMAL ECG WHEN COMPARED WITH ECG OF 26-APR-2017 14:44, QT HAS LENGTHENED Confirmed by LOGAN ALLEN MD ([id number]) on 04/25/2019 5:36:38 PM Referred By: Confirmed By:LOGAN ALLEN MD
[2019-04-25 18:29] VITALS: BMI 13.4
[2019-04-25 18:32] LABS: ARTERIAL BLOOD GAS BASE EXCESS -7.8 meq/l (-2-2); ARTERIAL BLOOD GAS PCO2 40.8 mmHg (35-45); ARTERIAL BLOOD GAS PO2 58.2 mmHg (80-105); ARTERIAL BLOOD GAS pH 7.27 (7.35-7.45)
[2019-04-25] MEDS: PROPOFOL 1,000,000 MCG/100 ML VIAL IVPB SCH (19:53)
[2019-04-25] MEDS: HEPARIN - 25,000 UNIT in SODIUM CHLORIDE 495 ML IV SCH (20:30)
[2019-04-25] MEDS: THIAMINE HCL 200 MG/2 ML VIAL IVPB SCH (20:31)
[2019-04-25] MEDS ORDERED: SODIUM CHLORIDE 500 ML IV STA ×2 (20:36→20:52)
--- NOTE | 2019-04-25 21:01 | PN ---
Progress Note (short form) - Note Progress Note: Pt noted to be biting on tube with BP 110's/70's. Propofol initiated at 5mcg for vent synchrony. Pt's BP later noted to be 77/50's with MAP 62. Bolused 500cc of NS and held propofol. Pt noted to be saturating 70% with good pulse oximetry waveform. Pt's vent settings gradually changed to RR 16 with PEEP of 14 maintaining TV of 350 and FiO2 of 100%. Plateau pressures measured at 28, however PIP noted to be 30-31. Pt's resultant saturation increased to 89% SpO2 on these settings with continued appropriate pulse oximetry waveform. Pt maintaining minute ventilation currently, however will keep monitoring for high plateau pressures at this time. Propofol added back onto regiment for ventilator synchrony.
[2019-04-26 03:58] LABS: MAGNESIUM 2.2 mg/dL (1.8-2.4)
[2019-04-26] MEDS ORDERED: fentaNYL CITRATE 250 MCG/5 ML VIAL ONE ×2 (04:16→15:34)
[2019-04-26] MEDS: FENTANYL INJECTION 500 MCG in DEXTROSE 5%-WATER - 90 ML IVPB SCH ×2 (04:34→15:43)
[2019-04-26] MEDS ORDERED: BENZOIN/ALOE VERA/STORAX/TOLU 58 ML BOTTLE ONE (05:24)
[2019-04-26 06:58] LABS: ARTERIAL BLD GAS O2 SATURATION 64.2 % (95-98); ARTERIAL BLOOD GAS BASE EXCESS -6.3 meq/l (-2-2); ARTERIAL BLOOD GAS PCO2 41.6 mmHg (35-45); ARTERIAL BLOOD GAS pH 7.29 (7.35-7.45)
[2019-04-26 07:06] LABS: ALLENS TEST POSITIVE
[2019-04-26 07:09] LABS: ARTERIAL BLOOD GAS PO2 39.6 mmHg (80-105)
[2019-04-26] MEDS: ALBUTEROL SO4 2.5/IPRATROPIUM 0.5 INH SOL 3 ML VIAL.NEB. NEB SCH ×4 (07:25→21:00)
--- NOTE | 2019-04-26 07:50 | PN ---
Progress Note, Physician History of Present Illness: HISTORY OF PRESENT ILLNESS: 83year old Male with only reported history from son , of COPD with long-standing tobacco use who presents today after collapse and unresponsiveness. Pt is unable to provide history so HPI is provided by the chart, ED report from Pt's son, and the son's . Pt was in his normal state of health (underweight, walking yet weak, and talking) when he was visiting his son. Son reports that pt lives in unairconditioned 7floor walk apartment, is "fussy" at baseline and noncompliant with medical care, no current PCP, no medications, and "doesn't eat or drink much." Son was attempting to bath pt when he suddenly slumped and was "unable to hold himself up" he quit talking at this point and never spoke to the son or EMS upon arrival. Pt's son called EMS who arrived 30min after the call who found pt to be bradycardic, hypotensive and hypoxic. Pt was intubated in the field, given Atropine x1 dose for bradycardia and was given Versed 5mg, Rocuronium 100, and Etomidate 20 for RSI. Pt arrived to the ED where he had his ETT exchanged however pt's BP and HR were back to normotensive and 100 bpm respectively. Pt currently is unresponsive with no gag reflex, sluggish pupils on AC mode of vent with 100% fiO2 and PEEP 8. Pt's pulse oximetry reading 66. Pt's ABG pO2 is 63.7. As per EMS, upon arrival pt O2 sat in 40s%, bradycardic. Was given atropine, IVF , versed 4, Yung 100, Etom 20 and intubated en route. Highest O2 saturation post- intubation was 81%. ER course was notable for: -Reintubation, -O2 without tube: 55% - Current Medication List Current Medications: Active Medications Albuterol/Ipratropium (Duoneb -) 1 amp NEB RQID MINOR Last Admin: 04/25/19 21:38 Dose: 1 amp Heparin Sodium (Porcine) (Heparin -) 1,000 unit IVPUSH PRN PRN PRN Reason: Heparin Heparin Sodium (Porcine) (Heparin -) 5,000 unit IVPUSH PRN PRN PRN Reason: Heparin Heparin Sodium (Porcine) 25, (000 unit/ Sodium Chloride) 500 mls @ 16 mls/hr IV TITR MINOR; Protocol Last Titration: 04/26/19 05:14 Dose: 500 unit/hr, 10 mls/hr Ceftriaxone Sodium 2 gm/ (Dextrose) 100 mls @ 100 mls/hr IVPB DAILY MINOR; Protocol Last Admin: 04/25/19 15:45 Dose: 100 mls/hr Dextrose/Sodium Chloride (D5-Ns -) 1,000 mls @ 83 mls/hr IV ASDIR MINOR Last Admin: 04/25/19 19:53 Dose: 83 mls/hr Propofol (Diprivan -) 1,000,000 mcg in 100 mls @ 1.197 mls/hr IVPB TITR IMNOR; Protocol Last Titration: 04/25/19 20:40 Dose: 0 mcg/kg/min, 0 mls/hr Fentanyl 500 mcg/ Dextrose 100 mls @ 4 mls/hr IVPB TITR MINOR; Protocol Last Titration: 04/26/19 05:00 Dose: 40 mcg/hr, 8 mls/hr Thiamine HCl (Vitamin B1 Injection -) 200 mg IVPB DAILY MINOR Last Admin: 04/25/19 20:31 Dose: 200 mg - Objective Vital Signs: Vital Signs Temperature 99.3 F 04/26/19 06:00 Pulse Rate 97 H 04/26/19 06:00 Respiratory Rate 27 H 04/26/19 06:37 Blood Pressure 106/72 04/26/19 06:00 O2 Sat by Pulse Oximetry (%) 75 L 04/25/19 21:00 Labs: CBC, BMP 04/25/19 12:35 04/25/19 12:30 INR, PTT INR 1.07 (0.83-1.09) 04/25/19 15:41 Impression/Plan Impression/Plan: NSTEMI: -low level troponin, gradually rising -ECG no ischemic changes -CT chest images reviewed: there is calcification in left main/prox LAD and LCX -likely secondary to prolonged hypotension/hypoperfusion -not a candidate for any invasive testing or mgmt -cont UFH gtt for now, given pt with risk factors for hi risk CAD (age with active cigs) -rectal aspirin -BPs currently soft, hi risk for hypotension--will hold BB for now, reconsider if troponin continue trending up bradycardic arrest with cardiogenic shock, lactic acidosis: -rhythm not specified -resolved with atropine in EMS -possibly primary arrhythmia here -tele monitoring refractory hypoxia: -hypoxic despite 100% FiO2 on vent -? PE--cannot do CTA (JELENA), V/Q (not responsive). treating with heparin at present -LE duplex ordered -followup echo for direct/indirect evidence of chronic [id number] shunt -will arrange echo with bubble study with cardiology today or tomorrow JELENA: -likely sec to prolonged hypotension/hypoperfusion -IV hydration -renal fxn improving
[2019-04-26 08:51] LABS: ALBUMIN 3.2 g/dl (3.4-5.0); BILIRUBIN,TOTAL 0.6 mg/dL (0.2-1); BLOOD UREA NITROGEN 59.5 mg/dL (7-18); CALCIUM 7.6 mg/dL (8.5-10.1); CREATININE 2.1 mg/dL (0.55-1.3); MAGNESIUM 2.3 mg/dL (1.8-2.4); TOT PROT 5.7 g/dl (6.4-8.2)
--- NOTE | 2019-04-26 09:53 | CON.CARD ---
Consult Consult Specialty:: cardio - History of Present Illness Chief Complaint: collapse, syncope with bradycardia History of Present Illness: 83 year old Male brought via EMS for unresponsiveness. History provided by son to ER and admit team: known h/o COPD with long-standing tobacco use, non-compliant with doctors with limited medical care. baseline USOH = limited PO intake, underweight, walking yet weak, verbally communicates appropriately. lives in 7 floor walk-up with no AC. on DOA son was attempting to bathe pt when he suddenly slumped and was "unable to hold himself up," and became non-communicative. son called EMS who arrived ? 30 min later--found pt to be bradycardic, hypotensive and hypoxic. No record found of specific rhythm in the field. Pt was intubated by EMS, given Atropine x1. Upon arrival in ER, BP and HR were stable. Pt noted to be unresponsive with no gag reflex, sluggish pupils, hypoxic and hypothermic. overnight, BP has ranges 70s-100s, mostly at higher end of range currently: intubated, not responsive/communicative. was showing brain function on critical care team rounds earlier - Alcohol/Substance Use Hx Alcohol Use: No - Smoking History Smoking history: Unknown if ever smoked Have you smoked in the past 12 months: Yes If you are a former smoker, when did you quit?: 5 Months ago Home Medications - Allergies Allergies/Adverse Reactions: Allergies Allergy/AdvReac Type Severity Reaction Status Date / Time No Known Allergies Allergy Verified 04/25/19 12:05 - Home Medications Home Medications: Ambulatory Orders NK [No Known Home Medication] 04/26/17 Family Disease History - Family Disease History Family History: Unable to Obtain Review of Systems Unable to obtain ROS, reason: not communicative Vital Signs: Vital Signs Temperature 99.3 F 04/26/19 06:00 Pulse Rate 97 H 04/26/19 08:00 Respiratory Rate 20 04/26/19 08:30 Blood Pressure 96/77 04/26/19 08:00 O2 Sat by Pulse Oximetry (%) 75 L 04/25/19 21:00 Constitutional: Yes: No Distress, Thin Eyes: No: Sclera Icterus HENT: No: Nasal Congestion Neck: No: Decreased ROM Respiratory: Yes: CTA Bilaterally (anteriorly). No: Accessory Muscle Use, Rales , Wheezes Gastrointestinal: Yes: Normal Bowel Sounds. No: Distention, Hepatomegaly, Palpable Mass, Tenderness Cardiovascular: Yes: Regular Rate and Rhythm JVD: No Carotid Bruit: No PMI: Non-Displaced Heart Sounds: Yes: S1, S2. No: Gallop Murmur: No: Systolic Murmur, Diastolic Murmur Musculoskeletal: Yes: Other (No kyphosis) Extremities: No: Cold, Cyanosis Edema: No Peripheral Pulses: 2+ Left Carotid, 2+ Right Carotid, 2+ Left Doralis Pedis, 2+ Right Dorsalis Pedis Integumentary: No: Jaundice Neurological: Yes: Alert, Oriented (x3) Psychiatric: No: Agitated - Other Data Labs, Other Data: CBC, BMP 04/25/19 12:35 04/26/19 07:40 INR, PTT INR 1.07 (0.83-1.09) 04/25/19 15:41 Troponin, BNP 04/25/19 04/25/19 04/25/19 12:30 15:41 22:00 Troponin I 0.03 0.16 H 0.33 H 04/26/19 04/26/19 02:30 07:40 Troponin I 0.71 H* 1.05 H* Troponin, BNP 04/25/19 04/25/19 04/25/19 12:30 15:41 22:00 Troponin I 0.03 0.16 H 0.33 H 04/26/19 04/26/19 02:30 07:40 Troponin I 0.71 H* 1.05 H* Laboratory Tests 04/25/19 04/25/19 04/25/19 12:30 12:35 15:41 WBC 3.1 L Hgb 13.5 Plt Count 198 Sodium Potassium BUN 77.0 H Creatinine 2.3 H Lactic Acid AST ALT Troponin I 0.03 0.16 H 04/25/19 04/26/19 04/26/19 22:00 02:30 07:40 WBC Hgb Plt Count Sodium 146 H Potassium 4.0 BUN 59.5 H Creatinine 2.1 H Lactic Acid AST 21 ALT 12 L Troponin I 0.33 H 0.71 H* 1.05 H* 04/26/19 07:40 WBC Hgb Plt Count Sodium Potassium BUN Creatinine Lactic Acid 3.6 H* AST ALT Troponin I Assessment/Plan ECG: NSR, LAFB, long QT. no acute ischemic changes CT chest: emphysematous changes, no infiltrate or congestion tele: sinus tach, artifact NSTEMI: -low level troponin, gradually rising -ECG no ischemic changes -CT chest images reviewed: there is calcification in left main/prox LAD and LCX -likely secondary to prolonged hypotension/hypoperfusion -not a candidate for any invasive testing or mgmt -cont UFH gtt for now, given pt with risk factors for hi risk CAD (age with active cigs) -rectal aspirin -BPs currently soft, hi risk for hypotension--will hold BB for now, reconsider if troponin continue trending up bradycardic arrest with cardiogenic shock, lactic acidosis: -rhythm not specified -resolved with atropine in EMS -possibly primary arrhythmia here -tele monitoring refractory hypoxia: -hypoxic despite 100% FiO2 on vent -? PE--cannot do CTA (JELENA), V/Q (not responsive). treating with heparin at present -LE duplex ordered -followup echo for direct/indirect evidence of chronic [id number] shunt -will arrange echo with bubble study with cardiology today or tomorrow JELENA: -likely sec to prolonged hypotension/hypoperfusion -IV hydration -renal fxn improving est time spent in data review, pt exam, formulating mgmt plan of potentially life threatening medical problems = 36 min
[2019-04-26] MEDS: CEFTRIAXONE 2 GM in DEXTROSE 5%-WATER 100 ML IVPB SCH (10:00)
[2019-04-26] MEDS ORDERED: ASPIRIN 300 MG SUPP.RECT RC SCH (10:15)
[2019-04-26] MEDS ORDERED: DEXTROSE 5%-WATER 100 ML IVPB ONE (10:27)
[2019-04-26] MEDS ORDERED: ROCURONIUM BROMIDE 50 MG/5 ML VIAL IVPUSH ONE (11:28)
[2019-04-26] MEDS ORDERED: PROPOFOL 1,000,000 MCG/100 ML VIAL IVPB SCH (11:30)
[2019-04-26] MEDS ORDERED: LACTATED RINGERS SOLUTION 1,000 ML/1,000 ML INFUS.BAG IV SCH (11:30)
[2019-04-26] MEDS: THIAMINE HCL 200 MG/2 ML VIAL IVPB SCH (12:02)
--- NOTE | 2019-04-26 12:21 | PN ---
Teaching Attending Note Name of Resident: Mary Dowd ATTENDING PHYSICIAN STATEMENT I saw and evaluated the patient. I reviewed the resident's note and discussed the case with the resident. I agree with the resident's findings and plan as documented. SUBJECTIVE: Patient seen and examined in the ICU. Remains intubated and lightly sedated. AC Mode of vent, 100% FiO2 PEEP 14. Moving all extremities. No Pressors. Intake & Output 04/23/19 04/24/19 04/25/19 04/26/19 23:59 23:59 23:59 23:59 Intake Total 4000 2264 Output Total 1300 150 Balance 2700 2114 Weight 88 lb Last Vital Signs Temp Pulse Resp BP Pulse Ox 98 F 97 H 25 H 108/70 75 L 04/26/19 10:00 04/26/19 10:00 04/26/19 11:19 04/26/19 10:00 04/26/19 10:00 Active Medications Albuterol/Ipratropium (Duoneb -) 1 amp NEB RQID MINOR Last Admin: 04/26/19 11:21 Dose: 1 amp Aspirin (Asa -) 300 mg RC DAILY MINOR Heparin Sodium (Porcine) (Heparin -) 1,000 unit IVPUSH PRN PRN PRN Reason: Heparin Heparin Sodium (Porcine) (Heparin -) 5,000 unit IVPUSH PRN PRN PRN Reason: Heparin Heparin Sodium (Porcine) 25, (000 unit/ Sodium Chloride) 500 mls @ 16 mls/hr IV TITR MINOR; Protocol Last Titration: 04/26/19 05:14 Dose: 500 unit/hr, 10 mls/hr Ceftriaxone Sodium 2 gm/ (Dextrose) 100 mls @ 100 mls/hr IVPB DAILY MINOR; Protocol Last Admin: 04/26/19 10:00 Dose: 100 mls/hr Propofol (Diprivan -) 1,000,000 mcg in 100 mls @ 1.197 mls/hr IVPB TITR MINOR; Protocol Last Titration: 04/25/19 20:40 Dose: 0 mcg/kg/min, 0 mls/hr Fentanyl 500 mcg/ Dextrose 100 mls @ 4 mls/hr IVPB TITR MINOR; Protocol Last Titration: 04/26/19 05:00 Dose: 40 mcg/hr, 8 mls/hr Lactated Ringer's (Lactated Ringers Solution) 1,000 ml in 1,000 mls @ 83 mls/ hr IV ASDIR MINOR Propofol (Diprivan -) 1,000,000 mcg in 100 mls @ 1.197 mls/hr IVPB TITR MINOR; Protocol Thiamine HCl (Vitamin B1 Injection -) 200 mg IVPB DAILY MINOR Last Admin: 04/26/19 12:02 Dose: 200 mg GENERAL: Intubated, moving all extremities HEENT: NC/AT, bitemporal wasting noted, no gag reflex noted, sluggish pupils but equal and reactive to light, sclera anicteric, dry MM NECK: No JVD, no masses noted LUNGS: Distant breath sounds bilaterally. No wheezes, and no crackles. No accessory muscle use. HEART: RRR, normal S1 and S2 without murmur ABDOMEN: Soft, cachectic, nondistended, hypoactive BS, no grimmacing with palpation. EXTREMITIES: Cachectic/thin appearing, 2+ pulses distally b/l, warm, well- perfused. Cap refill <2 seconds. No peripheral edema. NEUROLOGICAL: Limited. See HEENT exam. Babinksi downgoing b/l. SKIN: Warm, dry, no rashes Laboratory Results - last 24 hr 04/25/19 04/25/19 04/25/19 12:30 12:30 12:35 WBC 3.1 L RBC 4.66 Hgb 13.5 Hct 43.4 MCV 93.0 MCH 29.0 MCHC 31.2 L RDW 14.5 Plt Count 198 MPV 10.4 Absolute Neuts (auto) 2.5 Neutrophils % 80.5 Lymphocytes % 11.5 D Monocytes % 7.4 D Eosinophils % 0.2 Basophils % 0.4 Nucleated RBC % 0 PT with INR INR PTT (Actin FS) Anticoagulation Therapy Puncture Site ABG pH ABG pCO2 at Pt Temp ABG pO2 at Pt Temp ABG HCO3 ABG O2 Sat (Measured) ABG O2 Content ABG Base Excess Singh Test O2 Delivery Device Oxygen Flow Rate Vent Mode Vent Rate Mechanical Rate PEEP Pressure Support Vent Sodium 143 Potassium 5.2 H Chloride 105 Carbon Dioxide 23 Anion Gap 14 BUN 77.0 H Creatinine 2.3 H Est GFR (CKD-EPI)AfAm 28.93 Est GFR (CKD-EPI)NonAf 24.96 POC Glucometer Random Glucose 87 Lactic Acid 3.9 H* Calcium 9.0 Phosphorus Magnesium Total Bilirubin 1.0 AST 13 L ALT 11 L Alkaline Phosphatase 45 Creatine Kinase 52 Troponin I 0.03 Total Protein 6.6 Albumin 3.7 Urine Color Urine Appearance Urine pH Ur Specific [place] Urine Protein Urine Glucose (UA) Urine Ketones Urine Blood Urine Nitrite Urine Bilirubin Urine Urobilinogen Ur Leukocyte Esterase Urine WBC (Auto) Urine RBC (Auto) Urine Casts (Auto) U Epithel Cells (Auto) Urine Bacteria (Auto) Ur Random Creatinine Ur Random Sodium Ur Random Potassium Ur Random Chloride Opiates Screen Methadone Screen Barbiturate Screen Phencyclidine Screen Ur Amphetamines Screen MDMA (Ecstasy) Screen Benzodiazepines Screen Cocaine Screen U Marijuana (THC) Screen 04/25/19 04/25/19 04/25/19 13:21 14:20 14:20 WBC RBC Hgb Hct MCV MCH MCHC RDW Plt Count MPV Absolute Neuts (auto) Neutrophils % Lymphocytes % Monocytes % Eosinophils % Basophils % Nucleated RBC % PT with INR INR PTT (Actin FS) Anticoagulation Therapy No Result Required. Puncture Site Left radial ABG pH 7.45 ABG pCO2 at Pt Temp 26.2 L ABG pO2 at Pt Temp 63.7 L ABG HCO3 17.9 L ABG O2 Sat (Measured) 92.8 L ABG O2 Content 15.8 ABG Base Excess -4.4 L Singh Test Positive O2 Delivery Device No Result Required. Oxygen Flow Rate Yes Vent Mode No Result Required. Vent Rate No Result Required. Mechanical Rate No Result Required. PEEP Pressure Support Vent No Result Required. Sodium Potassium Chloride Carbon Dioxide Anion Gap BUN Creatinine Est GFR (CKD-EPI)AfAm Est GFR (CKD-EPI)NonAf POC Glucometer Random Glucose Lactic Acid Calcium Phosphorus Magnesium Total Bilirubin AST ALT Alkaline Phosphatase Creatine Kinase Troponin I Total Protein Albumin Urine Color Yellow Urine Appearance Turbid Urine pH 8.5 H Ur Specific [place] 1.011 Urine Protein 1+ H Urine Glucose (UA) Negative Urine Ketones Trace H Urine Blood 2+ H Urine Nitrite Negative Urine Bilirubin Negative Urine Urobilinogen 0.2 Ur Leukocyte Esterase 3+ H Urine WBC (Auto) 1290 Urine RBC (Auto) 15 Urine Casts (Auto) 52 U Epithel Cells (Auto) 6.4 Urine Bacteria (Auto) 1964.1 Ur Random Creatinine Ur Random Sodium Ur Random Potassium Ur Random Chloride Opiates Screen Negative Methadone Screen Negative Barbiturate Screen Negative Phencyclidine Screen Negative Ur Amphetamines Screen Negative MDMA (Ecstasy) Screen Negative Benzodiazepines Screen Positive A* Cocaine Screen Negative U Marijuana (THC) Screen Negative 04/25/19 04/25/19 04/25/19 15:20 15:41 15:41 WBC RBC Hgb Hct MCV MCH MCHC RDW Plt Count MPV Absolute Neuts (auto) Neutrophils % Lymphocytes % Monocytes % Eosinophils % Basophils % Nucleated RBC % PT with INR 12.60 INR 1.07 PTT (Actin FS) Anticoagulation Therapy Puncture Site ABG pH ABG pCO2 at Pt Temp ABG pO2 at Pt Temp ABG HCO3 ABG O2 Sat (Measured) ABG O2 Content ABG Base Excess Singh Test O2 Delivery Device Oxygen Flow Rate Vent Mode Vent Rate Mechanical Rate PEEP Pressure Support Vent Sodium Potassium Chloride Carbon Dioxide Anion Gap BUN Creatinine Est GFR (CKD-EPI)AfAm Est GFR (CKD-EPI)NonAf POC Glucometer Random Glucose Lactic Acid 5.6 H* Calcium Phosphorus Magnesium Total Bilirubin AST ALT Alkaline Phosphatase Creatine Kinase 121 Troponin I 0.16 H Total Protein Albumin Urine Color Urine Appearance Urine pH Ur Specific [place] Urine Protein Urine Glucose (UA) Urine Ketones Urine Blood Urine Nitrite Urine Bilirubin Urine Urobilinogen Ur Leukocyte Esterase Urine WBC (Auto) Urine RBC (Auto) Urine Casts (Auto) U Epithel Cells (Auto) Urine Bacteria (Auto) Ur Random Creatinine Ur Random Sodium Ur Random Potassium Ur Random Chloride Opiates Screen Methadone Screen Barbiturate Screen Phencyclidine Screen Ur Amphetamines Screen MDMA (Ecstasy) Screen Benzodiazepines Screen Cocaine Screen U Marijuana (THC) Screen 04/25/19 04/25/19 04/25/19 15:42 18:25 22:00 WBC RBC Hgb Hct MCV MCH MCHC RDW Plt Count MPV Absolute Neuts (auto) Neutrophils % Lymphocytes % Monocytes % Eosinophils % Basophils % Nucleated RBC % PT with INR INR PTT (Actin FS) Anticoagulation Therapy No Result Required. Puncture Site No Result Required. ABG pH 7.27 L ABG pCO2 at Pt Temp 40.8 ABG pO2 at Pt Temp 58.2 L ABG HCO3 18.2 L ABG O2 Sat (Measured) 84.0 L ABG O2 Content 14.4 L ABG Base Excess -7.8 L Singh Test No Result Required. O2 Delivery Device No Result Required. Oxygen Flow Rate No Result Required. Vent Mode No Result Required. Vent Rate No Result Required. Mechanical Rate No Result Required. PEEP Pressure Support Vent No Result Required. Sodium Potassium Chloride Carbon Dioxide Anion Gap BUN Creatinine Est GFR (CKD-EPI)AfAm Est GFR (CKD-EPI)NonAf POC Glucometer Random Glucose Lactic Acid 2.9 H* Calcium Phosphorus Magnesium Total Bilirubin AST ALT Alkaline Phosphatase Creatine Kinase Troponin I Total Protein Albumin Urine Color Urine Appearance Urine pH Ur Specific [place] Urine Protein Urine Glucose (UA) Urine Ketones Urine Blood Urine Nitrite Urine Bilirubin Urine Urobilinogen Ur Leukocyte Esterase Urine WBC (Auto) Urine RBC (Auto) Urine Casts (Auto) U Epithel Cells (Auto) Urine Bacteria (Auto) Ur Random Creatinine 69.0 Ur Random Sodium 94 Ur Random Potassium 24.0 L Ur Random Chloride 107 L Opiates Screen Methadone Screen Barbiturate Screen Phencyclidine Screen Ur Amphetamines Screen MDMA (Ecstasy) Screen Benzodiazepines Screen Cocaine Screen U Marijuana (THC) Screen 04/25/19 04/26/19 04/26/19 22:00 02:30 02:30 WBC RBC Hgb Hct MCV MCH MCHC RDW Plt Count MPV Absolute Neuts (auto) Neutrophils % Lymphocytes % Monocytes % Eosinophils % Basophils % Nucleated RBC % PT with INR INR PTT (Actin FS) > 400.0 H Anticoagulation Therapy Puncture Site ABG pH ABG pCO2 at Pt Temp ABG pO2 at Pt Temp ABG HCO3 ABG O2 Sat (Measured) ABG O2 Content ABG Base Excess Singh Test O2 Delivery Device Oxygen Flow Rate Vent Mode Vent Rate Mechanical Rate PEEP Pressure Support Vent Sodium Potassium Chloride Carbon Dioxide Anion Gap BUN Creatinine Est GFR (CKD-EPI)AfAm Est GFR (CKD-EPI)NonAf POC Glucometer Random Glucose Lactic Acid Calcium Phosphorus Magnesium 2.2 Total Bilirubin AST ALT Alkaline Phosphatase Creatine Kinase 140 Troponin I 0.33 H 0.71 H* Total Protein Albumin Urine Color Urine Appearance Urine pH Ur Specific [place] Urine Protein Urine Glucose (UA) Urine Ketones Urine Blood Urine Nitrite Urine Bilirubin Urine Urobilinogen Ur Leukocyte Esterase Urine WBC (Auto) Urine RBC (Auto) Urine Casts (Auto) U Epithel Cells (Auto) Urine Bacteria (Auto) Ur Random Creatinine Ur Random Sodium Ur Random Potassium Ur Random Chloride Opiates Screen Methadone Screen Barbiturate Screen Phencyclidine Screen Ur Amphetamines Screen MDMA (Ecstasy) Screen Benzodiazepines Screen Cocaine Screen U Marijuana (THC) Screen 07/22/19 07/22/19 07/22/19 06:48 07:40 07:40 WBC RBC Hgb Hct MCV MCH MCHC RDW Plt Count MPV Absolute Neuts (auto) Neutrophils % Lymphocytes % Monocytes % Eosinophils % Basophils % Nucleated RBC % PT with INR INR PTT (Actin FS) Anticoagulation Therapy Puncture Site Left radial ABG pH 7.29 L ABG pCO2 at Pt Temp 41.6 ABG pO2 at Pt Temp 39.6 L* ABG HCO3 19.5 L ABG O2 Sat (Measured) 64.2 L ABG O2 Content 11.7 L ABG Base Excess -6.3 L Singh Test Positive O2 Delivery Device Vent Oxygen Flow Rate 100% Vent Mode A/c Vent Rate 16 Mechanical Rate Yes PEEP 14.0 Pressure Support Vent 350 Sodium 146 H Potassium 4.0 Chloride 114 H Carbon Dioxide 22 Anion Gap 10 BUN 59.5 H Creatinine 2.1 H Est GFR (CKD-EPI)AfAm 32.29 Est GFR (CKD-EPI)NonAf 27.86 POC Glucometer Random Glucose 371 H* Lactic Acid 3.6 H* Calcium 7.6 L Phosphorus 3.0 Magnesium 2.3 Total Bilirubin 0.6 AST 21 ALT 12 L Alkaline Phosphatase 36 L Creatine Kinase Troponin I 1.05 H* Total Protein 5.7 L Albumin 3.2 L Urine Color Urine Appearance Urine pH Ur Specific [place] Urine Protein Urine Glucose (UA) Urine Ketones Urine Blood Urine Nitrite Urine Bilirubin Urine Urobilinogen Ur Leukocyte Esterase Urine WBC (Auto) Urine RBC (Auto) Urine Casts (Auto) U Epithel Cells (Auto) Urine Bacteria (Auto) Ur Random Creatinine Ur Random Sodium Ur Random Potassium Ur Random Chloride Opiates Screen Methadone Screen Barbiturate Screen Phencyclidine Screen Ur Amphetamines Screen MDMA (Ecstasy) Screen Benzodiazepines Screen Cocaine Screen U Marijuana (THC) Screen 04/26/19 11:46 WBC RBC Hgb Hct MCV MCH MCHC RDW Plt Count MPV Absolute Neuts (auto) Neutrophils % Lymphocytes % Monocytes % Eosinophils % Basophils % Nucleated RBC % PT with INR INR PTT (Actin FS) Anticoagulation Therapy Puncture Site ABG pH ABG pCO2 at Pt Temp ABG pO2 at Pt Temp ABG HCO3 ABG O2 Sat (Measured) ABG O2 Content ABG Base Excess Singh Test O2 Delivery Device Oxygen Flow Rate Vent Mode Vent Rate Mechanical Rate PEEP Pressure Support Vent Sodium Potassium Chloride Carbon Dioxide Anion Gap BUN Creatinine Est GFR (CKD-EPI)AfAm Est GFR (CKD-EPI)NonAf POC Glucometer 190 Random Glucose Lactic Acid Calcium Phosphorus Magnesium Total Bilirubin AST ALT Alkaline Phosphatase Creatine Kinase Troponin I Total Protein Albumin Urine Color Urine Appearance Urine pH Ur Specific [place] Urine Protein Urine Glucose (UA) Urine Ketones Urine Blood Urine Nitrite Urine Bilirubin Urine Urobilinogen Ur Leukocyte Esterase Urine WBC (Auto) Urine RBC (Auto) Urine Casts (Auto) U Epithel Cells (Auto) Urine Bacteria (Auto) Ur Random Creatinine Ur Random Sodium Ur Random Potassium Ur Random Chloride Opiates Screen Methadone Screen Barbiturate Screen Phencyclidine Screen Ur Amphetamines Screen MDMA (Ecstasy) Screen Benzodiazepines Screen Cocaine Screen U Marijuana (THC) Screen ASSESSMENT/PLAN: Acute respiratory failure Severe refractory hypoxemia: (?) intracardiac shunt Bradycardia with hypotension (resolved) Complicated Urinary tract infection Acute renal failure with uremia Lactic Acidosis Hyperkalemia Failure to thrive with Severe malnutrition (?) PE causing V/Q mismatch Trial of deep sedation or paralysis to decrease O2 consumption and hopefully increase saturation Cardiology for "bubble testing" Need to reach out to [facility]. If failure to oxygenate, can consider ECMO. However overall status and likely outcome is poor. Empiric IV Heparin Empiric Rocephin Medrol BD TX standing and PRN Can start enteral feeds Requires ICU monitoring Dr Giron Critical care time spent in reviewing chart, evaluating patient and formulating plan - 36 minutes.
[2019-04-26] MEDS: methylPREDNISolone NA SUCC 40 MG/1 ML VIAL IVPUSH SCH ×2 (13:00→18:34)
--- NOTE | 2019-04-26 13:27 | PN ---
Physical Exam: SUBJECTIVE: Patient seen and examined at the bedside. Awake and alert, able to blink and answer yes/ no questions. Able to follow commands (example squeezed eyes shut when asked, squeezed my hands when asked). I explained to the patient where he was and why he was hospitalized. Troponins continue to rise. Vent settings this morning were RR 16, TV 350, PEEP 14, FiO2 100%. Patient is still saturating poorly with O2 sat hovering around 70. OBJECTIVE: Vital Signs Period Temp Pulse Resp BP Sys/Mcclellan Pulse Ox Last 24 Hr 94.7 F-99.4 F 95-110 14-27 77-143/40-99 68-96 GENERAL: Awake. responsive, eyes open and following simple commands, intubated HEENT: NC/AT, bitemporal wasting noted, sluggish pupils but equal and reactive to light, sclera anicteric, dry MM NECK: No JVD, no masses noted LUNGS: Distant breath sounds bilaterally. No wheezes, and no crackles. No accessory muscle use. Intubated AC 350TV/RR 16/FiO2 100%/PEEP 14 HEART: RRR, normal S1 and S2 without murmur ABDOMEN: Soft, cachectic, nondistended, hypoactive BS, no grimmacing with palpation. EXTREMITIES: Cachectic/thin appearing, 2+ pulses distally b/l, warm, well- perfused. Cap refill <2 seconds. No peripheral edema. NEUROLOGICAL: Limited. See HEENT exam. SKIN: Warm, dry, flaking skin on feet b/l without overt ulcerations, malodorous feet with onchomycosis. No rashes Laboratory Results - last 24 hr 04/25/19 04/25/19 04/25/19 12:30 12:35 13:21 WBC 3.1 L RBC 4.66 Hgb 13.5 Hct 43.4 MCV 93.0 MCH 29.0 MCHC 31.2 L RDW 14.5 Plt Count 198 MPV 10.4 Absolute Neuts (auto) 2.5 Neutrophils % 80.5 Lymphocytes % 11.5 D Monocytes % 7.4 D Eosinophils % 0.2 Basophils % 0.4 Nucleated RBC % 0 PT with INR INR PTT (Actin FS) Anticoagulation Therapy No Result Required. Puncture Site Left radial ABG pH 7.45 ABG pCO2 at Pt Temp 26.2 L ABG pO2 at Pt Temp 63.7 L ABG HCO3 17.9 L ABG O2 Sat (Measured) 92.8 L ABG O2 Content 15.8 ABG Base Excess -4.4 L Singh Test Positive O2 Delivery Device No Result Required. Oxygen Flow Rate Yes Vent Mode No Result Required. Vent Rate No Result Required. Mechanical Rate No Result Required. PEEP Pressure Support Vent No Result Required. Sodium 143 Potassium 5.2 H Chloride 105 Carbon Dioxide 23 Anion Gap 14 BUN 77.0 H Creatinine 2.3 H Est GFR (CKD-EPI)AfAm 28.93 Est GFR (CKD-EPI)NonAf 24.96 POC Glucometer Random Glucose 87 Lactic Acid Calcium 9.0 Phosphorus Magnesium Total Bilirubin 1.0 AST 13 L ALT 11 L Alkaline Phosphatase 45 Creatine Kinase 52 Troponin I 0.03 Total Protein 6.6 Albumin 3.7 Urine Color Urine Appearance Urine pH Ur Specific [place] Urine Protein Urine Glucose (UA) Urine Ketones Urine Blood Urine Nitrite Urine Bilirubin Urine Urobilinogen Ur Leukocyte Esterase Urine WBC (Auto) Urine RBC (Auto) Urine Casts (Auto) U Epithel Cells (Auto) Urine Bacteria (Auto) Ur Random Creatinine Ur Random Sodium Ur Random Potassium Ur Random Chloride Opiates Screen Methadone Screen Barbiturate Screen Phencyclidine Screen Ur Amphetamines Screen MDMA (Ecstasy) Screen Benzodiazepines Screen Cocaine Screen U Marijuana (THC) Screen 04/25/19 04/25/19 04/25/19 14:20 14:20 15:20 WBC RBC Hgb Hct MCV MCH MCHC RDW Plt Count MPV Absolute Neuts (auto) Neutrophils % Lymphocytes % Monocytes % Eosinophils % Basophils % Nucleated RBC % PT with INR INR PTT (Actin FS) Anticoagulation Therapy Puncture Site ABG pH ABG pCO2 at Pt Temp ABG pO2 at Pt Temp ABG HCO3 ABG O2 Sat (Measured) ABG O2 Content ABG Base Excess Singh Test O2 Delivery Device Oxygen Flow Rate Vent Mode Vent Rate Mechanical Rate PEEP Pressure Support Vent Sodium Potassium Chloride Carbon Dioxide Anion Gap BUN Creatinine Est GFR (CKD-EPI)AfAm Est GFR (CKD-EPI)NonAf POC Glucometer Random Glucose Lactic Acid 5.6 H* Calcium Phosphorus Magnesium Total Bilirubin AST ALT Alkaline Phosphatase Creatine Kinase Troponin I Total Protein Albumin Urine Color Yellow Urine Appearance Turbid Urine pH 8.5 H Ur Specific [place] 1.011 Urine Protein 1+ H Urine Glucose (UA) Negative Urine Ketones Trace H Urine Blood 2+ H Urine Nitrite Negative Urine Bilirubin Negative Urine Urobilinogen 0.2 Ur Leukocyte Esterase 3+ H Urine WBC (Auto) 1290 Urine RBC (Auto) 15 Urine Casts (Auto) 52 U Epithel Cells (Auto) 6.4 Urine Bacteria (Auto) 1964.1 Ur Random Creatinine Ur Random Sodium Ur Random Potassium Ur Random Chloride Opiates Screen Negative Methadone Screen Negative Barbiturate Screen Negative Phencyclidine Screen Negative Ur Amphetamines Screen Negative MDMA (Ecstasy) Screen Negative Benzodiazepines Screen Positive A* Cocaine Screen Negative U Marijuana (THC) Screen Negative 04/25/19 04/25/19 04/25/19 15:41 15:41 15:42 WBC RBC Hgb Hct MCV MCH MCHC RDW Plt Count MPV Absolute Neuts (auto) Neutrophils % Lymphocytes % Monocytes % Eosinophils % Basophils % Nucleated RBC % PT with INR 12.60 INR 1.07 PTT (Actin FS) Anticoagulation Therapy Puncture Site ABG pH ABG pCO2 at Pt Temp ABG pO2 at Pt Temp ABG HCO3 ABG O2 Sat (Measured) ABG O2 Content ABG Base Excess Singh Test O2 Delivery Device Oxygen Flow Rate Vent Mode Vent Rate Mechanical Rate PEEP Pressure Support Vent Sodium Potassium Chloride Carbon Dioxide Anion Gap BUN Creatinine Est GFR (CKD-EPI)AfAm Est GFR (CKD-EPI)NonAf POC Glucometer Random Glucose Lactic Acid Calcium Phosphorus Magnesium Total Bilirubin AST ALT Alkaline Phosphatase Creatine Kinase 121 Troponin I 0.16 H Total Protein Albumin Urine Color Urine Appearance Urine pH Ur Specific [place] Urine Protein Urine Glucose (UA) Urine Ketones Urine Blood Urine Nitrite Urine Bilirubin Urine Urobilinogen Ur Leukocyte Esterase Urine WBC (Auto) Urine RBC (Auto) Urine Casts (Auto) U Epithel Cells (Auto) Urine Bacteria (Auto) Ur Random Creatinine 69.0 Ur Random Sodium 94 Ur Random Potassium 24.0 L Ur Random Chloride 107 L Opiates Screen Methadone Screen Barbiturate Screen Phencyclidine Screen Ur Amphetamines Screen MDMA (Ecstasy) Screen Benzodiazepines Screen Cocaine Screen U Marijuana (THC) Screen 04/25/19 04/25/19 04/25/19 18:25 22:00 22:00 WBC RBC Hgb Hct MCV MCH MCHC RDW Plt Count MPV Absolute Neuts (auto) Neutrophils % Lymphocytes % Monocytes % Eosinophils % Basophils % Nucleated RBC % PT with INR INR PTT (Actin FS) Anticoagulation Therapy No Result Required. Puncture Site No Result Required. ABG pH 7.27 L ABG pCO2 at Pt Temp 40.8 ABG pO2 at Pt Temp 58.2 L ABG HCO3 18.2 L ABG O2 Sat (Measured) 84.0 L ABG O2 Content 14.4 L ABG Base Excess -7.8 L Singh Test No Result Required. O2 Delivery Device No Result Required. Oxygen Flow Rate No Result Required. Vent Mode No Result Required. Vent Rate No Result Required. Mechanical Rate No Result Required. PEEP Pressure Support Vent No Result Required. Sodium Potassium Chloride Carbon Dioxide Anion Gap BUN Creatinine Est GFR (CKD-EPI)AfAm Est GFR (CKD-EPI)NonAf POC Glucometer Random Glucose Lactic Acid 2.9 H* Calcium Phosphorus Magnesium Total Bilirubin AST ALT Alkaline Phosphatase Creatine Kinase 140 Troponin I 0.33 H Total Protein Albumin Urine Color Urine Appearance Urine pH Ur Specific [place] Urine Protein Urine Glucose (UA) Urine Ketones Urine Blood Urine Nitrite Urine Bilirubin Urine Urobilinogen Ur Leukocyte Esterase Urine WBC (Auto) Urine RBC (Auto) Urine Casts (Auto) U Epithel Cells (Auto) Urine Bacteria (Auto) Ur Random Creatinine Ur Random Sodium Ur Random Potassium Ur Random Chloride Opiates Screen Methadone Screen Barbiturate Screen Phencyclidine Screen Ur Amphetamines Screen MDMA (Ecstasy) Screen Benzodiazepines Screen Cocaine Screen U Marijuana (THC) Screen 04/26/19 04/26/19 04/26/19 02:30 02:30 06:48 WBC RBC Hgb Hct MCV MCH MCHC RDW Plt Count MPV Absolute Neuts (auto) Neutrophils % Lymphocytes % Monocytes % Eosinophils % Basophils % Nucleated RBC % PT with INR INR PTT (Actin FS) > 400.0 H Anticoagulation Therapy Puncture Site Left radial ABG pH 7.29 L ABG pCO2 at Pt Temp 41.6 ABG pO2 at Pt Temp 39.6 L* ABG HCO3 19.5 L ABG O2 Sat (Measured) 64.2 L ABG O2 Content 11.7 L ABG Base Excess -6.3 L Singh Test Positive O2 Delivery Device Vent Oxygen Flow Rate 100% Vent Mode A/c Vent Rate 16 Mechanical Rate Yes PEEP 14.0 Pressure Support Vent 350 Sodium Potassium Chloride Carbon Dioxide Anion Gap BUN Creatinine Est GFR (CKD-EPI)AfAm Est GFR (CKD-EPI)NonAf POC Glucometer Random Glucose Lactic Acid Calcium Phosphorus Magnesium 2.2 Total Bilirubin AST ALT Alkaline Phosphatase Creatine Kinase Troponin I 0.71 H* Total Protein Albumin Urine Color Urine Appearance Urine pH Ur Specific [place] Urine Protein Urine Glucose (UA) Urine Ketones Urine Blood Urine Nitrite Urine Bilirubin Urine Urobilinogen Ur Leukocyte Esterase Urine WBC (Auto) Urine RBC (Auto) Urine Casts (Auto) U Epithel Cells (Auto) Urine Bacteria (Auto) Ur Random Creatinine Ur Random Sodium Ur Random Potassium Ur Random Chloride Opiates Screen Methadone Screen Barbiturate Screen Phencyclidine Screen Ur Amphetamines Screen MDMA (Ecstasy) Screen Benzodiazepines Screen Cocaine Screen U Marijuana (THC) Screen 04/26/19 04/26/19 04/26/19 07:40 07:40 11:46 WBC RBC Hgb Hct MCV MCH MCHC RDW Plt Count MPV Absolute Neuts (auto) Neutrophils % Lymphocytes % Monocytes % Eosinophils % Basophils % Nucleated RBC % PT with INR INR PTT (Actin FS) Anticoagulation Therapy Puncture Site ABG pH ABG pCO2 at Pt Temp ABG pO2 at Pt Temp ABG HCO3 ABG O2 Sat (Measured) ABG O2 Content ABG Base Excess Singh Test O2 Delivery Device Oxygen Flow Rate Vent Mode Vent Rate Mechanical Rate PEEP Pressure Support Vent Sodium 146 H Potassium 4.0 Chloride 114 H Carbon Dioxide 22 Anion Gap 10 BUN 59.5 H Creatinine 2.1 H Est GFR (CKD-EPI)AfAm 32.29 Est GFR (CKD-EPI)NonAf 27.86 POC Glucometer 190 Random Glucose 371 H* Lactic Acid 3.6 H* Calcium 7.6 L Phosphorus 3.0 Magnesium 2.3 Total Bilirubin 0.6 AST 21 ALT 12 L Alkaline Phosphatase 36 L Creatine Kinase Troponin I 1.05 H* Total Protein 5.7 L Albumin 3.2 L Urine Color Urine Appearance Urine pH Ur Specific [place] Urine Protein Urine Glucose (UA) Urine Ketones Urine Blood Urine Nitrite Urine Bilirubin Urine Urobilinogen Ur Leukocyte Esterase Urine WBC (Auto) Urine RBC (Auto) Urine Casts (Auto) U Epithel Cells (Auto) Urine Bacteria (Auto) Ur Random Creatinine Ur Random Sodium Ur Random Potassium Ur Random Chloride Opiates Screen Methadone Screen Barbiturate Screen Phencyclidine Screen Ur Amphetamines Screen MDMA (Ecstasy) Screen Benzodiazepines Screen Cocaine Screen U Marijuana (THC) Screen Active Medications Generic Name Dose Route Start Last Admin Trade Name Freq PRN Reason Stop Dose Admin Albuterol/Ipratropium 1 amp 04/25/19 16:00 04/26/19 11:21 Duoneb - NEB 1 amp RQID MINOR Administration Aspirin 300 mg 04/26/19 10:15 Asa - RC DAILY MINOR Heparin Sodium (Porcine) 1,000 unit 04/25/19 14:47 Heparin - IVPUSH PRN PRN Heparin Heparin Sodium (Porcine) 5,000 unit 04/25/19 14:47 Heparin - IVPUSH PRN PRN Heparin Heparin Sodium (Porcine) 25, 500 mls @ 16 mls/hr 04/25/19 15:00 04/26/19 05: 14 000 unit/ Sodium Chloride IV 500 unit/hr TITR MINOR 10 mls/hr Titration Protocol 800 UNIT/HR Ceftriaxone Sodium 2 gm/ 100 mls @ 100 mls/hr 04/25/19 15:45 04/26/19 10:00 Dextrose IVPB 100 mls/hr DAILY MINOR Administration Protocol Propofol 1,000,000 mcg in 100 mls @ 1.197 mls/hr 04/25/19 19:45 04/25/19 20: 40 Diprivan - IVPB 0 mcg/kg/min TITR MINOR 0 mls/hr Titration Protocol 5 MCG/KG/MIN Fentanyl 500 mcg/ Dextrose 100 mls @ 4 mls/hr 04/26/19 04:15 04/26/19 05:00 IVPB 40 mcg/hr TITR MINOR 8 mls/hr Titration Protocol 20 MCG/HR Lactated Ringer's 1,000 ml in 1,000 mls @ 83 mls/hr 04/26/19 11:30 Lactated Ringers Solution IV ASDIR MINOR Propofol 1,000,000 mcg in 100 mls @ 1.197 mls/hr 04/26/19 11:30 Diprivan - IVPB TITR MINOR Protocol 5 MCG/KG/MIN Methylprednisolone Sodium Succinate 80 mg 04/26/19 12:30 Solu-Medrol - IVPUSH Q8H-IV MINOR Thiamine HCl 200 mg 04/25/19 15:30 04/26/19 12:02 Vitamin B1 Injection - IVPB 200 mg DAILY MINOR Administration ASSESSMENT/PLAN: Mr. Gonzalez is an 83 year old man with a past medical history of COPD being treated in the ICU for unresponsiveness/ change in mental status. Differential remains broad but includes cardiac arrhythmia vs. sepsis vs. PE vs. seizure vs. malignancy. Neuro Unclear etiology for collapse/unresponsiveness DDx: Cardiac arrhythmia, syncope 2/2 to failure to thrive and sepsis, r/o PE given persistent hypoxia and possibility of malignancy causing cachexia, seizure with postictal state -Monitor for seizure-like activity and if noticed will load with Keppra -Thiamine alongside of dextrose in fluids given possibility of Wernicke's encephalopathy Cards Bradycardia with hypotension (resolved) Lactic Acidosis- Likely multifactorial: Type A given tissue hypoxia vs. Type B with nutritional deficits -Trend LA -IVF LR@83cc/hr (switched from D5 saline because elevated glucose) PE remains on differential diagnosis, no contraindications of AC, treat PE empirically -Optimize oxygenation -repeat ABGs for more accurate O2 saturations -heparin gtt until renal function stabilizes -Echo: EF 60-65%, atrial and mitral regurg, no wall motion abnormality - Given difficulty maintaining appropriate O2 saturations on this patient, an Echo with bubble study was ordered to evaluate possibility of R-L shunt -F/U official read of bubble study, however; preliminarily it appears the patient may have an intracardiac shunt that may require percutaneous intervention and possibly ECHMO. -Consider adding rocuronium to paralyze patient and decrease O2 demand thereby increasing O2 saturation Continue cardiac monitoring Cardiology following, recommendations appreciated Pulm Acute respiratory failure -Continue AC mode of vent however will use low TV and maintain minute ventilation with RR given multiple bullae seen on CT chest -Given persistent hypoxemia will trial paralytic to eliminate muscle oxygen consumption/demand -Continue to follow ABGs Renal Complicated Urinary tract infection -Empiric Rocephin 2gm qdaily for UTI Hyperkalemia -Urine electrolyte and urine creatinine ordered GI -Failure to thrive with Severe malnutrition -NPO while intubated FEN: Fluids: LR@83cc/hr Electrolyte abnormalities: Hyperkalemia, treat with fluids and CaGluc for cardiac stabilization given acute T-waves; repeat BMP Nutrition: NPO while intubated PPX: DVT - already on Heparin gtt GI - No indication currently Dispo: ICU monitoring, consider transfer to [facility] pending results of Echo bubble study. Patient may require percutaneous intervention for a R>L shunt and may need to be bridged with ECHMO. GOC: Full code Case discussed with Attending/ ICU team Visit type - Emergency Visit Emergency Visit: Yes ED Registration Date: 04/25/19 Care time: The patient presented to the Emergency Department on the above date and was hospitalized for further evaluation of their emergent condition. - New Patient This patient is new to me today: Yes Date on this admission: 04/26/19 - Critical Care Critical Care patient: Yes Total Critical Care Time (in minutes): 40 Critical Care Statement: The care of this patient involved high complexity decision making to prevent further life threatening deterioration of the patient 's condition and/or to evaluate & treat vital organ system(s) failure or risk of failure. ATTENDING PHYSICIAN STATEMENT I saw and evaluated the patient. I reviewed the resident's note and discussed the case with the resident. I agree with the resident's findings and plan as documented. SUBJECTIVE: OBJECTIVE: ASSESSMENT AND PLAN:
--- NOTE | 2019-04-26 14:47 | ECHO ---
Name: BATSHEVA CACERES Exam:Adult Echocardiogram Study Date: 04/26/2019 10:11 AM Age: 83 yrs Reason For Study: lv ef assessment Height: 71 in Weight: 88 lb BSA: 1.5 m2 BP: 108/70 mmHg MMode/2D Measurements & Calculations ACS: 1.4 cm LVOT diam: 1.9 cm Doppler Measurements & Calculations Ao V2 max: 204.7 cm/sec LV V1 max P.9 mmHg Ao max P.0 mmHg LV V1 mean P.0 mmHg Ao V2 mean: 173.4 cm/sec LV V1 max: 68.0 cm/sec Ao mean P.7 mmHg LV V1 mean: 46.8 cm/sec Ao V2 VTI: 43.0 cm LV V1 VTI: 9.8 cm PEDRITO(I,D): 0.65 cm2 PEDRITO(V,D): 0.94 cm2 SV(LVOT): 27.9 ml TR max pramod: 265.5 cm/sec TR max P.3 mmHg Med Peak E' Pramod: 4.8 cm/sec Lat Peak E' Pramod: 6.4 cm/sec Procedure The study was technically adequate with some images being suboptimal in quality. Left Ventricle The left ventricular size, thickness and function are normal. Ejection Fraction = 60-65%. Right Ventricle The right ventricle is normal in size and function. Atria Normal left and right atrial size and function. Mitral Valve Calcified mitral apparatus. The mitral valve is grossly normal. The mitral valve leaflets appear thic kened, but open well. There is mild mitral regurgitation. Tricuspid Valve The tricuspid valve is not well visualized, but is grossly normal. There is severe tricuspid regurgit ation. Right ventricular systolic pressure is 30 mmhg. Aortic Valve There is moderate aortic sclerosis.;. The aortic valve opens well. The aortic valve is trileaflet. No aortic regurgitation is present. Pulmonic Valve The pulmonic valve is not well visualized. Pericardium/Pleura Trivial pericardial effusion not hemodynamically significant. Interpretation Summary There is no comparison study available. The left ventricular size, thickness and function are normal The right ventricle is normal in size and function. There is moderate aortic sclerosis.; There is severe tricuspid regurgitation. There is mild mitral regurgitation. Trivial pericardial effusion not hemodynamically significant Ejection Fraction = 60-65%. Khang Ibarra MD 04/26/2019 02:47 PM
[2019-04-26 14:56] LABS: ARTERIAL BLOOD GAS BASE EXCESS -8.4 meq/l (-2-2); ARTERIAL BLOOD GAS PCO2 44.1 mmHg (35-45); ARTERIAL BLOOD GAS PO2 42.2 mmHg (80-105); ARTERIAL BLOOD GAS pH 7.24 (7.35-7.45)
[2019-04-26 14:59] LABS: ALLENS TEST POSITIVE
[2019-04-26] MEDS ORDERED: LACTATED RINGERS SOLUTION 1000 ML INFUS.BAG IV ONE (15:17)
[2019-04-26] MEDS: HEPARIN - 25,000 UNIT in SODIUM CHLORIDE 495 ML IV SCH (16:00)
--- NOTE | 2019-04-26 17:36 | PROC ---
Central Line Insertion Indication: Vasopressor Risks and Benefits Explained: Yes Consent on Chart: Yes Central Line: Triple Lumen Catheter Anesthesia: 1% Lidocaine Sterile Technique: Yes Ultrasound Guided Assistance: Yes Position: Right Internal Jugular Post Insertion: Yes: Chest X-Ray Ordered Sterile Dressing Applied: Yes
--- NOTE | 2019-04-26 18:25 | ECHO ---
Name: BATSHEVA CACERES Exam:Adult Echocardiogram Study Date: 04/26/2019 02:44 PM Age: 83 yrs Reason For Study: bubble study Procedure A limited two-dimensional transthoracic echocardiogram was performed (2D). Left Ventricle The left ventricular size, thickness and function are normal. Ejection Fraction = 60-65%. Right Ventricle The right ventricle is normal in size and function. Atria Normal left and right atrial size and function. Injection of contrast documented an interatrial shunt . The atrial septum is aneurysmal. Early appearance of agitated saline bubbles from right to left side befo re video recording is stopped prematurely is suggestive of interatrial shunt with right to left shunt although longer recorded loops would help to confirm. Mitral Valve The mitral valve leaflets appear thickened, but open well. The mitral valve is grossly normal. Calcif ied mitral apparatus. Tricuspid Valve The tricuspid valve is not well visualized, but is grossly normal. Interpretation Summary Contrast injection was performed. The left ventricular size, thickness and function are normal Ejection Fraction = 60-65%. The right ventricle is normal in size and function. The mitral valve leaflets appear thickened, but open well. The tricuspid valve is not well visualized, but is grossly normal. Early appearance of agitated saline bubbles from right to left side before video recording is stopped prematurely is suggestive of interatrial shunt with right to left shunt although longer recorded loop s would help to confirm. Khang Ibarra MD 04/26/2019 06:25 PM
[2019-04-26 18:33] LABS: ARTERIAL BLD GAS O2 SATURATION 61.7 % (95-98); ARTERIAL BLOOD GAS BASE EXCESS -8.3 meq/l (-2-2); ARTERIAL BLOOD GAS PCO2 47.6 mmHg (35-45); ARTERIAL BLOOD GAS pH 7.22 (7.35-7.45)
[2019-04-26 18:37] LABS: ALLENS TEST POSITIVE
[2019-04-26] MEDS ORDERED: PANTOPRAZOLE SODIUM 40 MG VIAL IVPUSH ONE (20:03)
[2019-04-26] MEDS ORDERED: SODIUM CHLORIDE 250 ML IV STA ×2 (20:04→20:36)
[2019-04-26] MEDS: PROPOFOL 1,000,000 MCG/100 ML VIAL IVPB SCH (20:40)
[2019-04-26 21:31] VITALS: BP 93/61; PULSE 98; TEMP 98.5
== END 2019-04-26 23:50 | disposition short-term general hospital (02) | DRG 208 ==
LOC: JER 12:03 → JERBED 18:03 → JICU 18:12
PROVIDERS: ADMIT Internal Medicine; ATTEND Nurse Practitioner Acute Care
PROC: 5A1945Z Respiratory Ventilation, 24-96 Consecutive Hours (ICD-10-PCS; 2019-04-25)
PROC: 0BH Respiratory System, Insertion (ICD-10-PCS; 2019-04-25)
PROC: 05HM33Z Insertion of Infusion Device into Right Internal Jugular Vein, Percutaneous Approach (ICD-10-PCS; principal; 2019-04-26)
PROC: B513ZZA Fluoroscopy of Right Jugular Veins, Guidance (ICD-10-PCS; 2019-04-26)
DX: I26.99 Other pulmonary embolism without acute cor pulmonale (principal); I21.4 Non-ST elevation (NSTEMI) myocardial infarction; E43 Unspecified severe protein-calorie malnutrition; J96.01 Acute respiratory failure with hypoxia; R57.8 Other shock; Z68.1 Body mass index [BMI] 19.9 or less, adult; N39.0 Urinary tract infection, site not specified; N17.9 Acute kidney failure, unspecified; E87.2 Acidosis; R64 Cachexia; I51.3 Intracardiac thrombosis, not elsewhere classified; I95.9 Hypotension, unspecified; J44.9 Chronic obstructive pulmonary disease, unspecified; R62.7 Adult failure to thrive; R00.1 Bradycardia, unspecified; E87.5 Hyperkalemia; Z91.14 Patient's other noncompliance with medication regimen; R00.0 Tachycardia, unspecified
CPT/HCPCS: 36415; 36600; 70450-TC; 71045-TC-FY; 71250-TC; 80053; 80307; 81003; 82436; 82550; 82553; 82565; 82803; 82962; 83605; 83735; 84100; 84133; 84300; 84484; 85025; 85610; 85730; 87040; 87086; 87186; 93005; 93010; 93306-TC; 93308; 93970; 93970-TC; 94002; 94640; 99285-25; J1644; J7030